=== PATIENT | male | born 1985 | race Caucasian/White ===

== ENCOUNTER 2017-03-19 22:43 | Emergency (ER) | payer BC, OTHER ==
[2017-03-19] MEDS ORDERED: IBUPROFEN 600 MG TAB PO STA (23:44)
--- NOTE | 2017-03-20 00:08 | ED ---
General Adult HPI - General Chief complaint: Extremity Injury, Upper Stated complaint: IHS/Wrist pain Time Seen by Provider: 03/19/17 23:40 Source: patient Mode of arrival: ambulatory Limitations: no limitations - History of Present Illness Initial comments: 31-year-old male patient presents to emergency department today for complaints of right wrist pain. 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 He states that around 6 PM today he began to have pain in the wrist. States that the pain worsens with flexion and extension. He states it is not tender. Patient has had a previous forearm fracture with [employer] in the sixth grade. He denies any chronic issues with this. He denies any radiation of the pain into his hand or up his arm. He denies any numbness or tingling to his hand or fingers. Denies any other injuries. Patient denies any headache, neck pain, back pain, chest pain, shortness of breath, dizziness, weakness, abdominal pain, nausea, vomiting , or difficulties with bowel movements or urination. - Related Data Home Medications Medication Instructions Recorded Confirmed Cetirizine HCl [Zyrtec] 10 mg PO DAILY 03/19/17 03/19/17 Allergies Allergy/AdvReac Type Severity Reaction Status Date / Time No Known Allergies Allergy Verified 08/27/15 08:41 Review of Systems ROS Statement: Those systems with pertinent positive or pertinent negative responses have been documented in the HPI. ROS Other: All systems not noted in ROS Statement are negative. Past Medical History Past Medical History: No Reported History History of Any Multi-Drug Resistant Organisms: None Reported Past Surgical History: Adenoidectomy, Ear Surgery, Hernia Repair, Orthopedic Surgery Past Psychological History: No Psychological Hx Reported Smoking Status: Never smoker Past Alcohol Use History: Occasional Past Drug Use History: None Reported General Exam Limitations: no limitations General appearance: alert, in no apparent distress, other (This is a well- developed well-nourished adult male patient in no acute distress. Vital signs upon presentation were temperature 97.9F, pulse 80, respirations 18, blood pressure 121/77, pulse ox 99% on room air.) Head exam: Present: atraumatic, normocephalic, normal inspection Respiratory exam: Present: normal lung sounds bilaterally. Absent: respiratory distress, wheezes, rales, rhonchi, stridor Cardiovascular Exam: Present: regular rate, normal rhythm, normal heart sounds. Absent: systolic murmur, diastolic murmur, rubs, gallop, clicks Extremities exam: Present: normal inspection, full ROM (Reports increased pain with flexion and hyperextension.), normal capillary refill. Absent: tenderness (No tenderness noted to the wrist, no tenderness over the anatomical snuffbox.) , pedal edema, joint swelling, calf tenderness Neurological exam: Present: alert, oriented X3, CN II-XII intact Psychiatric exam: Present: normal affect, normal mood Skin exam: Present: warm, dry, intact, normal color. Absent: rash Course Vital Signs 03/19/17 22:55 Temperature 97.9 F Pulse Rate 80 Respiratory 18 Rate Blood Pressure 121/77 O2 Sat by Pulse 99 Oximetry Medical Decision Making - Medical Decision Making 31-year-old male patient presents for evaluation of right wrist pain. X-ray was obtained and showed no acute fracture or dislocation. As patient did not have an acute injury, is not having any snuffbox tenderness, and does have increased pain with flexion and extension his pain is most likely due to repetitive use injury versus sprain. Patient will be given an Shadi wrap. Instructed to rest the wrist and perform gentle stretching exercises over the next few days. He is instructed to take ibuprofen or Tylenol for pain control. He is instructed to follow-up with the primary care physician or orthopedic physician for recheck should his pain symptoms persist beyond 7-10 days. He is instructed to return here immediately for any new, worsening, or concerning symptoms. Patient verbalizes understanding and agrees with this plan. - Radiology Data Radiology results: report reviewed, image reviewed 3 views of the right wrist show distal radial shaft side plate and screws through an old fracture. There is a break in the midportion of the plate at the level of the third distal screw. No acute fracture or malalignment of the bony structures. A small calcification radial aspect of the distal radius, likely old fracture. Soft tissues are unremarkable with no radiopaque foreign body. Impression by Dr. Tyson shows distal radial shaft side plate and screws or an old fracture. There is a break in the midportion of the play at the level third distal screw. No fracture or malalignment of the bony structures. Disposition Clinical Impression: Wrist sprain Disposition: HOME SELF-CARE Condition: Good Instructions: Wrist Sprain (ED) Additional Instructions: Use Shadi wrap for comfort. Apply ice 20 minutes at a time at least 4 times per day. Follow up with primary care physician or orthopedic physician for a recheck in 7-10 days if pain symptoms persist. Return here immediately for any new, worsening, or concerning symptoms. Referrals: Nicole Wright DO [Primary Care Provider] - 1-2 days Martin Akins MD [STAFF PHYSICIAN] - 1-2 days Time of Disposition: 01:12
--- NOTE | 2017-03-20 01:08 | XR ---
EXAM: XR Right Wrist Complete, 3 or More Views CLINICAL HISTORY: Pain in RT wrist. H/O radius TECHNIQUE: Frontal, lateral and oblique views of the right wrist. COMPARISON: No relevant prior studies available. FINDINGS: Bones/joints: Distal radial shaft sideplate and screws through an old fracture. There is a break in the midportion of the plate at the level of the third distal screw. No acute fracture or malalignment of the bony structures. Small calcification radial aspect of the distal radius, likely old fracture. Soft tissues: Unremarkable. No radiopaque foreign body. IMPRESSION: 1. Distal radial shaft sideplate and screws through an old fracture. There is a break in the midportion of the plate at the level of the third distal screw. 2. No acute fracture or malalignment of the bony structures.
[2017-03-20 01:46] VITALS: BP 123/73; PULSE 62; RESP 16; TEMP 98.1
== END 2017-03-20 01:44 | disposition home or self-care (01) ==
LOC: EC 22:43
DX: S63.501A Unspecified sprain of right wrist, initial encounter (principal); Z98.890 Other specified postprocedural states; Z79.899 Other long term (current) drug therapy; X50.0XXA Overexertion from strenuous movement or load, initial encounter; Y93.89 Activity, other specified; Y99.0 Civilian activity done for income or pay; Y92.69 Other specified industrial and construction area as the place of occurrence of the external cause
CPT/HCPCS: 99283

== ENCOUNTER 2017-05-08 22:29 | Emergency (ER) | payer BC, OTHER ==
[2017-05-08 22:37] VITALS: BP 133/85; PULSE 76; RESP 18; TEMP 97.8
--- NOTE | 2017-05-08 23:28 | ED ---
General Adult HPI - General Chief complaint: Skin/Abscess/Foreign Body Stated complaint: Abscess Time Seen by Provider: 05/08/17 23:08 Source: patient, RN notes reviewed Mode of arrival: ambulatory Limitations: no limitations - History of Present Illness Initial comments: 31-year-old male presents for evaluation of pain and swelling on his left medial thigh. Patient states he has had several pimples on both his thighs, this is been occurring for many years. Normally he is able to treat these just by expressing pus at home. He had a larger side of infection on his left medial thigh over the past week. Patient does admit to opening this abscess with sterilized tweezers at home. He states he did get a significant amount of pus. He has been applying Neosporin over the site for the past several days. Denies fever or chills. No history diabetes. Patient's second complaint is itchy and erythematous rash over his genitals. He has had this for months to years. He has tried many [id number] remedies with minimal relief. - Related Data Home Medications Medication Instructions Recorded Confirmed Cetirizine HCl [Zyrtec] 10 mg PO DAILY 03/19/17 03/19/17 Previous Rx's Medication Instructions Recorded Clotrimazole Cream [Lotrimin Cream] 1 applic TOPICAL BID #60 gm 05/08/17 Mupirocin 2% Oint [Bactroban 2% 1 applic TOPICAL TID #1 bottle 05/08/17 Oint] Allergies Allergy/AdvReac Type Severity Reaction Status Date / Time No Known Allergies Allergy Verified 05/08/17 22:37 Review of Systems ROS Statement: Those systems with pertinent positive or pertinent negative responses have been documented in the HPI. ROS Other: All systems not noted in ROS Statement are negative. Past Medical History Past Medical History: No Reported History Additional Past Medical History / Comment(s): seasonal allergies History of Any Multi-Drug Resistant Organisms: None Reported Past Surgical History: Adenoidectomy, Ear Surgery, Hernia Repair, Orthopedic Surgery Past Psychological History: No Psychological Hx Reported Smoking Status: Never smoker Past Alcohol Use History: Occasional Past Drug Use History: None Reported General Exam Limitations: no limitations General appearance: alert, in no apparent distress Head exam: Present: atraumatic, normocephalic Eye exam: Present: normal appearance, PERRL ENT exam: Present: normal exam, mucous membranes moist Neck exam: Present: normal inspection. Absent: tenderness, meningismus Respiratory exam: Present: normal lung sounds bilaterally. Absent: respiratory distress Cardiovascular Exam: Present: regular rate, normal rhythm GI/Abdominal exam: Present: soft. Absent: distended, tenderness exam: Present: other (Erythematous scaling rash on his scrotum and perineum) . Absent: testicular tenderness, urethral discharge, scrotal swelling Extremities exam: Present: other (Draining abscess on the proximal medial left thigh, 1 cm of associated cellulitis, no remaining fluctuance or induration) Neurological exam: Present: alert, oriented X3 Psychiatric exam: Present: normal affect, normal mood Skin exam: Present: warm, dry, rash (Tinea cruris) Course Vital Signs 05/08/17 22:33 Temperature 97.8 F Pulse Rate 76 Respiratory 18 Rate Blood Pressure 133/85 O2 Sat by Pulse 98 Oximetry Medical Decision Making - Medical Decision Making 4-year-old male presenting with chief complaint of abscess to the left medial thigh. There is well drained abscess, patient was able to drain this at home with tweezers. Minimal surrounding erythema and cellulitis. Patient is prescribed penicillin for continued treatment. He will also apply warm compresses at home. Additional exam finding of tinea Cruris, patient is prescribed clotrimazole. Blood glucose 103 Disposition Clinical Impression: Tinea cruris, Abscess Disposition: ADMITTED IP TO THIS HOSP Condition: Good Instructions: Abscess (ED), Jock Itch (ED) Prescriptions: Clotrimazole Cream [Lotrimin Cream] 1 applic TOPICAL BID #60 gm Mupirocin 2% Oint [Bactroban 2% Oint] 1 applic TOPICAL TID #1 bottle Referrals: Nicole Wright DO [Primary Care Provider] - 1-2 days Time of Disposition: 23:27
[2017-05-08 23:40] LABS: Glucose,Whole Blood 103 mg/dL (75-99)
== END 2017-05-08 23:43 | disposition other institution (70) ==
LOC: EC 22:29
DX: L02.416 Cutaneous abscess of left lower limb (principal); B35.6 Tinea cruris; Z79.899 Other long term (current) drug therapy
CPT/HCPCS: 36415; 99282

== ENCOUNTER 2018-10-08 17:49 | Emergency (ER) | payer BC ==
[2018-10-08 18:02] VITALS: RESP 18
[2018-10-08] MEDS ORDERED: CYCLOBENZAPRINE 10MG STARTER 3 TAB BTL PO STA (18:12)
[2018-10-08] MEDS ORDERED: KETOROLAC 30 MG/ML 1 ML VIAL IM STA (18:12)
[2018-10-08] MEDS ORDERED: LIDOCAINE 5% PATCH TOPICAL STA (18:13)
--- NOTE | 2018-10-08 19:20 | ED ---
General Adult HPI - General Chief complaint: Back Pain/Injury Stated complaint: BACK PAIN Time Seen by Provider: 10/08/18 18:04 Source: patient, RN notes reviewed Mode of arrival: ambulatory Limitations: no limitations - History of Present Illness Initial comments: 33-year-old male without any significant past medical history presents to the emergency department for a chief complaint of right lower back pain x 2 days. Patient states this is localized in the right lower back. Denies radiating pain down the leg. Patient states pain is better after he gets up and moves around. States it is worse after he has been laying down for quite a while. States this has happened before and he has been to the chiropractor for an adjustment with resolving symptoms. Patient states he also feels better when he flexes his hip and stretches the lower back. Patient denies blood or bowel changes. Denies fevers or chills. Denies any leg weakness or loss of sensation. No history of IV drug abuse. No midline pain. No injuries. However patient does state he hauls heavy pallets around at work and may have strained his back.Patient has no other complaints at this time including shortness of breath, chest pain, abdominal pain, nausea or vomiting, headache, or visual changes. - Related Data Home Medications Medication Instructions Recorded Confirmed Cetirizine HCl [Zyrtec] 10 mg PO DAILY 03/19/17 03/19/17 Previous Rx's Medication Instructions Recorded Clotrimazole Cream [Lotrimin Cream] 1 applic TOPICAL BID #60 gm 05/08/17 Mupirocin 2% Oint [Bactroban 2% 1 applic TOPICAL TID #1 bottle 05/08/17 Oint] Cyclobenzaprine [Flexeril] 10 mg PO TID PRN #10 tab 10/08/18 Allergies Allergy/AdvReac Type Severity Reaction Status Date / Time No Known Allergies Allergy Verified 10/08/18 18:00 Review of Systems ROS Statement: Those systems with pertinent positive or pertinent negative responses have been documented in the HPI. ROS Other: All systems not noted in ROS Statement are negative. Past Medical History Past Medical History: No Reported History Additional Past Medical History / Comment(s): seasonal allergies History of Any Multi-Drug Resistant Organisms: None Reported Past Surgical History: Adenoidectomy, Ear Surgery, Hernia Repair, Orthopedic Surgery Past Psychological History: No Psychological Hx Reported Smoking Status: Never smoker Past Alcohol Use History: Occasional Past Drug Use History: None Reported General Exam Limitations: no limitations General appearance: alert, in no apparent distress Head exam: Present: atraumatic, normocephalic, normal inspection Eye exam: Present: normal appearance, PERRL, EOMI. Absent: scleral icterus, conjunctival injection, periorbital swelling ENT exam: Present: normal exam, mucous membranes moist Neck exam: Present: normal inspection, full ROM. Absent: tenderness, meningismus, lymphadenopathy Respiratory exam: Present: normal lung sounds bilaterally. Absent: respiratory distress, wheezes, rales, rhonchi, stridor Cardiovascular Exam: Present: regular rate, normal rhythm, normal heart sounds. Absent: systolic murmur, diastolic murmur, rubs, gallop, clicks GI/Abdominal exam: Present: soft, normal bowel sounds. Absent: distended, tenderness, guarding, rebound, rigid Extremities exam: Present: full ROM (Full range of motion noted of the right lower extremity. Patient actually has improvement of symptoms with full flexion of the right hip due to stretching of the back muscles. Pain worsens with extension of the right lower extremity.), normal capillary refill (Capillary refill less than 2 seconds, DP pulse 2+ in the right lower extremity) Back exam: Present: paraspinal tenderness (minimal tenderness over SI joint.). Absent: CVA tenderness (R), CVA tenderness (L), vertebral tenderness (No lumbar spine tenderness.) Neurological exam: Present: alert, oriented X3, CN II-XII intact Psychiatric exam: Present: normal affect, normal mood Course Vital Signs 10/08/18 18:00 Temperature 98.9 F Pulse Rate 84 Respiratory 18 Rate Blood Pressure 136/91 O2 Sat by Pulse 100 Oximetry Medical Decision Making - Medical Decision Making 33-year-old male presents to the emergency department for a chief complaint of right-sided lower back pain. Denies any radiating pain. States this improves asked her he has been up and stretching and worse when he has been lying down for some time and then gets up. Patient states pain feels better when he stretches his low back when flexing his hips. Pain is worse with extension of the low back. Neurovascular intact in the right lower extremity. No lumbar spine tenderness. No blunt trauma. 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 Denies bladder or bowel changes, fevers or chills, weakness of the lower extremities or numbness of the lower extremities. Symptoms consistent with mechanical back strain and muscle cramping. Patient given Toradol and Flexeril, feeling much better. Patient also given a lidocaine patch. Will follow up with primary care in 1-2 days. Will return here if he has any worsening symptoms. Disposition Clinical Impression: Mechanical back pain Disposition: HOME SELF-CARE Condition: Good Instructions (If sedation given, give patient instructions): Acute Low Back Pain (ED), Lower Back Exercises (ED) Additional Instructions: Please take Motrin and Tylenol for pain. Please eat food before taking Motrin or Tylenol. Take Flexeril as needed for muscle relaxer. Do not drive or operate machinery while taking this. Patient did do plenty of low back exercises and gentle stretching. Follow up with primary care in 1-2 days. Return here if you have any worsening symptoms such as fevers, inability to urinate, or numbness of the lower extremities. Prescriptions: Cyclobenzaprine [Flexeril] 10 mg PO TID PRN #10 tab PRN Reason: Pain Is patient prescribed a controlled substance at d/c from ED?: No Referrals: Nicole Wright DO [Primary Care Provider] - 1-2 days Time of Disposition: 19:20
[2018-10-08 19:35] VITALS: BP 135/94; PULSE 73; TEMP 98.1
== END 2018-10-08 19:32 | disposition home or self-care (01) ==
LOC: EC 17:49
DX: M54.5 Low back pain (principal); Z79.899 Other long term (current) drug therapy
CPT/HCPCS: 99283; 96372; J1885

== ENCOUNTER 2019-04-02 17:34 | Emergency (ER) | payer BC ==
[2019-04-02 17:47] VITALS: BP 131/87; PULSE 88; RESP 20; TEMP 98.6
[2019-04-02] MEDS ORDERED: SULFAMETHOX-TMP 800-160MG 1 EACH TAB PO STA (18:11)
[2019-04-02] MEDS ORDERED: SULFAMETH-TMP DS STARTER PACK 2 TAB BTL PO STA (18:11)
--- NOTE | 2019-04-02 18:14 | ED ---
General Adult HPI - General Chief complaint: Skin/Abscess/Foreign Body Stated complaint: Toe pain/infection Time Seen by Provider: 04/02/19 17:54 Source: patient, RN notes reviewed, old records reviewed Mode of arrival: ambulatory Limitations: no limitations - History of Present Illness Initial comments: 33-year-old male patient with no pertinent pmhx presents to ED with chief complaint of pain and redness and drainage from the lateral aspect of the great toe on left foot. This has been ongoing for 2 days. Patient reports that 2 days ago he applied pressure to this area and drained pus out of it. Patient reports he has had a small amount discharge since. Patient denies any other complaints. Systemic: Pt denies fatigue, fever/chills, rash. Pt denies weakness, night sweats, weight loss. Neuro: Pt denies headache, visual disturbances, syncope or pre-syncope. HEENT: Pt denies ocular discharge or irritation, otalgia, rhinorrhea, pharyngitis or notable lymphadenopathy. Cardiopulmonary: Pt denies chest pain, SOB, heart palpitations, dyspnea on exertion. Abdominal/GI: Pt denies abdominal pain, n/v/d. : Pt denies dysuria, burning w/ urination, frequency/urgency. Denies new onset urinary or bowel incontinence. MSK: Pt denies oss of strength or function in extremities. Neuro: Pt denies new onset weakness, paresthesias. - Related Data Home Medications Medication Instructions Recorded Confirmed Cetirizine HCl [Zyrtec] 10 mg PO DAILY 03/19/17 03/19/17 Previous Rx's Medication Instructions Recorded Clotrimazole Cream [Lotrimin Cream] 1 applic TOPICAL BID #60 gm 05/08/17 Mupirocin 2% Oint [Bactroban 2% 1 applic TOPICAL TID #1 bottle 05/08/17 Oint] Cyclobenzaprine [Flexeril] 10 mg PO TID PRN #10 tab 10/08/18 Sulfamethox-Tmp 800-160Mg [Bactrim 2 tab PO Q12HR 7 Days #28 tab 04/02/19 DS 800-160 mg] Allergies Allergy/AdvReac Type Severity Reaction Status Date / Time No Known Allergies Allergy Verified 04/02/19 17:46 Review of Systems ROS Statement: Those systems with pertinent positive or pertinent negative responses have been documented in the HPI. ROS Other: All systems not noted in ROS Statement are negative. Past Medical History Past Medical History: No Reported History Additional Past Medical History / Comment(s): seasonal allergies History of Any Multi-Drug Resistant Organisms: None Reported Past Surgical History: Adenoidectomy, Ear Surgery, Hernia Repair, Orthopedic Surgery Past Psychological History: No Psychological Hx Reported Smoking Status: Never smoker Past Alcohol Use History: Occasional Past Drug Use History: None Reported General Exam - General Exam Comments Initial Comments: Constitutional: NAD, AOX3, Pt has pleasant affect. HEENT: NC/AT, trachea midline, neck supple, no lymphadenopathy. Posterior pharynx non erythematous, without exudates. External ears appear normal, without discharge. Mucous membranes moist. Eyes PERRLA, EOM intact. There is no scleral icterus. No pallor noted. Cardiopulmonary: RRR, no murmurs, rubs or gallops, no JVD noted. Lungs CTAB in anterior and posterior williamson. No peripheral edema. Abdominal exam: Abdomen soft and non-distended. Abdomen non-tender to palpation in all 4 quadrants. Bowel sounds active in LLQ. No hepatosplenomegaly. No ecchymosis Neuro: CN II-XII grossly intact. No nuchal rigidity. No raccon eyes, no monzon sign, no hemotympanum. No cervical spinal tenderness. MSK: Paronychia noted to great toe of left foot. Patient able to wiggle toes. Cap refill less than 2 seconds. Mild amount of surrounding erythema. Clear drainage was expressed., Actively draining. . No posterior calf tenderness bilaterally, homans sign negative bilaterally. Posterior tibialis and radial pulse +2 bilaterally. Sensation intact in upper and lower extremities. Full active ROM in upper and lower extremities, 5/5 stregnth. Limitations: no limitations Course Vital Signs 04/02/19 17:43 Temperature 98.6 F Pulse Rate 88 Respiratory 20 Rate Blood Pressure 131/87 O2 Sat by Pulse 99 Oximetry Medical Decision Making - Medical Decision Making 33-year-old male patient in [facility] chief complaint of paronychia to the great toe of his left foot. Patient has been able to express purulent drainage of the 2 days ago. Has had some clear drainage since. Patient will signs are stable, afebrile. Physical exam displayed paronychia actively draining. Pulmonary erythema around region. Culture was obtained. Patient will be placed on Bactrim. Patient will continue treatment including an compress and soaks. Patient follow up with primary care provider. Will return to ER if condition worsens in any way. Case discussed with Dr. Benoit. Disposition Clinical Impression: Paronychia Disposition: HOME SELF-CARE Condition: Stable Instructions (If sedation given, give patient instructions): Paronychia (ED), Warm Compress or Soak (ED) Additional Instructions: Patient to adhere to previously discussed treatment plan and will take medication(s) as directed. Patient to follow up with PCP in 1-2 days. Patient to return to ED if symptoms do not improve. Continue doing warm compresses or soaks. Taken antibiotics as directed. Return to ER if condition worsens or is not improved. Otherwise follow-up with primary care provider tomorrow. Prescriptions: Sulfamethox-Tmp 800-160Mg [Bactrim DS 800-160 mg] 2 tab PO Q12HR 7 Days #28 tab Is patient prescribed a controlled substance at d/c from ED?: No Referrals: Nicole Wright DO [Primary Care Provider] - 1-2 days
== END 2019-04-02 18:45 | disposition home or self-care (01) ==
LOC: EC 17:34
DX: L03.032 Cellulitis of left toe (principal); Z91.048 Other nonmedicinal substance allergy status; Z79.899 Other long term (current) drug therapy
CPT/HCPCS: 87070; 87077; 87186; 87205; 99284

== ENCOUNTER 2019-06-24 22:55 | Emergency (ER) | payer BC ==
[2019-06-24 23:00] VITALS: BP 128/84
--- NOTE | 2019-06-24 23:16 | ED ---
Fever HPI - General Chief Complaint: Nausea/Vomiting/Diarrhea Stated Complaint: Fever Time Seen by Provider: 06/24/19 22:59 Source: patient, RN notes reviewed, old records reviewed Mode of arrival: ambulatory Limitations: no limitations - History of Present Illness Initial Comments: This is a 33-year-old male here for evaluation presented for evaluation of multiple nonspecific complaints doesn't fever vomiting diarrhea multiple episodes of all the above patient does feel weak no travel history or sick contacts no significant medical history patient's diarrhea has Explosive and persistent decreased oral intake secondary to nausea and vomiting MD Complaint: fever, weakness -: hour(s) Temperature Source: subjective Context: multiple patients with similar symptoms Associated Symptoms: denies other symptoms, myalgias, cough, nausea, vomiting, night sweats Treatments Prior to Arrival: Acetaminophen, Ibuprofen - Related Data Home Medications Medication Instructions Recorded Confirmed Cetirizine HCl [Zyrtec] 10 mg PO DAILY 03/19/17 03/19/17 Previous Rx's Medication Instructions Recorded Clotrimazole Cream [Lotrimin Cream] 1 applic TOPICAL BID #60 gm 05/08/17 Mupirocin 2% Oint [Bactroban 2% 1 applic TOPICAL TID #1 bottle 05/08/17 Oint] Cyclobenzaprine [Flexeril] 10 mg PO TID PRN #10 tab 10/08/18 Sulfamethox-Tmp 800-160Mg [Bactrim 2 tab PO Q12HR 7 Days #28 tab 04/02/19 DS 800-160 mg] Allergies Allergy/AdvReac Type Severity Reaction Status Date / Time No Known Allergies Allergy Verified 06/24/19 23:00 Review of Systems ROS Statement: Those systems with pertinent positive or pertinent negative responses have been documented in the HPI. ROS Other: All systems not noted in ROS Statement are negative. Past Medical History Past Medical History: No Reported History Additional Past Medical History / Comment(s): seasonal allergies History of Any Multi-Drug Resistant Organisms: MRSA Date of last positivie culture/infection: 04/02/19 MDRO Source:: Toe, right First Past Surgical History: Adenoidectomy, Ear Surgery, Hernia Repair, Orthopedic Surgery Past Psychological History: No Psychological Hx Reported Smoking Status: Never smoker Past Alcohol Use History: Occasional Past Drug Use History: None Reported General Exam Limitations: no limitations General appearance: alert, in no apparent distress Head exam: Present: atraumatic, normocephalic, normal inspection Eye exam: Present: normal appearance, PERRL, EOMI. Absent: scleral icterus, conjunctival injection, periorbital swelling ENT exam: Present: normal exam, mucous membranes moist Neck exam: Present: normal inspection. Absent: tenderness, meningismus, lymphadenopathy Respiratory exam: Present: normal lung sounds bilaterally. Absent: respiratory distress, wheezes, rales, rhonchi, stridor Cardiovascular Exam: Present: normal rhythm, tachycardia, normal heart sounds. Absent: systolic murmur, diastolic murmur, rubs, gallop, clicks GI/Abdominal exam: Present: soft, normal bowel sounds. Absent: distended, tenderness, guarding, rebound, rigid Extremities exam: Present: normal inspection, full ROM, normal capillary refill. Absent: tenderness, pedal edema, joint swelling, calf tenderness Back exam: Present: normal inspection Neurological exam: Present: alert, oriented X3, CN II-XII intact Psychiatric exam: Present: normal affect, normal mood Skin exam: Present: warm, dry, intact, normal color. Absent: rash Course Vital Signs 06/24/19 06/25/19 22:57 00:40 Temperature 99.8 F H 100.0 F H Pulse Rate 103 H 95 Respiratory 20 18 Rate Blood Pressure 128/84 O2 Sat by Pulse 98 100 Oximetry - Reevaluation(s) Reevaluation #1: 06/24/19 23:54 medical record is reviewed Reevaluation #2: 06/24/19 23:54 symptoms are improved Medical Decision Making - Medical Decision Making 33 male date ER for evaluation lab values are completely within normal limits. We'll continue Motrin and Tylenol for symptoms symptoms do appear to be persistent with the flu, stomach flu. Influenza negative [facility] normal patient can be discharged - Lab Data Result diagrams: 06/24/19 23:17 06/24/19 23:17 Lab Results 06/24/19 06/24/19 06/24/19 Range/Units 23:17 23:17 23:38 WBC 11.7 H (3.8-10.6) k/uL RBC 5.65 (4.30-5.90) m/uL Hgb 16.4 (13.0-17.5) gm/dL Hct 49.7 (39.0-53.0) % MCV 87.9 (80.0-100.0) fL MCH 29.0 (25.0-35.0) pg MCHC 32.9 (31.0-37.0) g/dL RDW 12.3 (11.5-15.5) % Plt Count 227 (150-450) k/uL Neutrophils % 87 % Lymphocytes % 6 % Monocytes % 4 % Eosinophils % 2 % Basophils % 0 % Neutrophils # 10.2 H (1.3-7.7) k/uL Lymphocytes # 0.7 L (1.0-4.8) k/uL Monocytes # 0.5 (0-1.0) k/uL Eosinophils # 0.2 (0-0.7) k/uL Basophils # 0.0 (0-0.2) k/uL Sodium 139 (137-145) mmol/L Potassium 4.6 (3.5-5.1) mmol/L Chloride 104 (98-107) mmol/L Carbon Dioxide 26 (22-30) mmol/L Anion Gap 9 mmol/L BUN 19 (9-20) mg/dL Creatinine 0.77 (0.66-1.25) mg/dL Est GFR (CKD-EPI)AfAm >90 (>60 ml/min/1.73 sqM) Est GFR (CKD-EPI)NonAf >90 (>60 ml/min/1.73 sqM) Glucose 112 H (74-99) mg/dL Calcium 9.3 (8.4-10.2) mg/dL Phosphorus 3.3 (2.5-4.5) mg/dL Magnesium 1.9 (1.6-2.3) mg/dL Total Bilirubin 1.7 H (0.2-1.3) mg/dL AST 40 (17-59) U/L ALT 23 (4-49) U/L Alkaline Phosphatase 63 (38-126) U/L Total Protein 8.1 (6.3-8.2) g/dL Albumin 4.8 (3.5-5.0) g/dL Influenza Type A RNA Not Detected (Not Detectd) Influenza Type B (PCR) Not Detected (Not Detectd) Disposition Clinical Impression: Dehydration, Fever Disposition: HOME SELF-CARE Condition: Good Instructions (If sedation given, give patient instructions): Fever in Adults (ED) Is patient prescribed a controlled substance at d/c from ED?: No Referrals: Nicole Wright DO [Primary Care Provider] - 1-2 days
[2019-06-24] MEDS ORDERED: ACETAMINOPHEN TAB 500 MG TAB PO STA (23:17)
[2019-06-24] MEDS ORDERED: DEXAMETHASONE SOD PHOSPHATE 10 MG/ML 1 ML VIAL IV STA (23:17)
[2019-06-24] MEDS ORDERED: SODIUM CHLORIDE 0.9% 500 ML 500 ML IV STA (23:17)
[2019-06-24] MEDS ORDERED: ONDANSETRON 4 MG/2 ML VIAL IVP STA (23:17)
[2019-06-24] MEDS ORDERED: KETOROLAC 30 MG/ML 1 ML VIAL IVP STA (23:17)
[2019-06-24] MEDS ORDERED: SODIUM CHLORIDE 0.9% 1,000 ML IV STA ×2 (23:17)
[2019-06-24 23:30] LABS: Basophils % (A) 0 %; Eosinophils # (A) 0.2 k/uL (0-0.7); Eosinophils % (A) 2 %; HCT 49.7 % (39.0-53.0); HGB 16.4 gm/dL (13.0-17.5); Lymphocytes # (A) 0.7 k/uL (1.0-4.8); Lymphocytes % (A) 6 %; MCHC 32.9 g/dL (31.0-37.0); MCV 87.9 fL (80.0-100.0); Mean Platelet Volume 7.4; Monocytes # (A) 0.5 k/uL (0-1.0); Monocytes % (A) 4 %; Neutrophils # (A) 10.2 k/uL (1.3-7.7); Neutrophils % (A) 87 %; Platelet Count 227 k/uL (150-450); RBC 5.65 m/uL (4.30-5.90); RDW 12.3 % (11.5-15.5); WBC 11.7 k/uL (3.8-10.6)
[2019-06-24 23:46] LABS: ALT 23 U/L (4-49); African American GFR (CKD) >90 (>60 ml/min/1.73 sqM); Anion Gap 9 mmol/L; Blood Urea Nitrogen 19 mg/dL (9-20); Calcium 9.3 mg/dL (8.4-10.2); Carbon Dioxide 26 mmol/L (22-30); Chloride 104 mmol/L (98-107); Glucose 112 mg/dL (74-99); Non-African American GFR(CKD) >90 (>60 ml/min/1.73 sqM); Sodium 139 mmol/L (137-145)
[2019-06-25] MEDS ORDERED: ONDANSETRON 4 MG ODT STARTER PACK 2 TAB BTL PO STA (00:11)
[2019-06-25 00:26] LABS: Magnesium 1.9 mg/dL (1.6-2.3); Phosphorus 3.3 mg/dL (2.5-4.5); Potassium 4.6 mmol/L (3.5-5.1)
[2019-06-25 00:27] LABS: AST 40 U/L (17-59); Albumin 4.8 g/dL (3.5-5.0); Alkaline Phosphatase 63 U/L (38-126); Total Bilirubin 1.7 mg/dL (0.2-1.3); Total Protein 8.1 g/dL (6.3-8.2)
[2019-06-25 00:42] VITALS: PULSE 95; RESP 18; TEMP 100
== END 2019-06-25 00:42 | disposition home or self-care (01) ==
LOC: EC 22:55
DX: E86.0 Dehydration (principal); R50.9 Fever, unspecified; R00.0 Tachycardia, unspecified; R11.2 Nausea with vomiting, unspecified; R19.7 Diarrhea, unspecified; R53.1 Weakness; R63.8 Other symptoms and signs concerning food and fluid intake; Z91.048 Other nonmedicinal substance allergy status; Z79.899 Other long term (current) drug therapy; Z86.14 Personal history of Methicillin resistant Staphylococcus aureus infection
CPT/HCPCS: 36415; 80053; 83735; 84100; 85025; 87502; 99284; 96374; 96375 ×2; 96361; J1100; J2405; J1885; S0119

== ENCOUNTER 2019-09-17 05:41 | Emergency (ER) | payer BC ==
[2019-09-17 05:48] VITALS: BP 131/82; RESP 18
--- NOTE | 2019-09-17 06:08 | ED ---
URI HPI - General Chief Complaint: Upper Respiratory Infection Stated Complaint: congestion Time Seen by Provider: 09/17/19 05:57 Source: patient, RN notes reviewed Mode of arrival: ambulatory Limitations: no limitations - History of Present Illness Initial Comments: 34-year-old male presents emergency department to complaining of nasal congestion. Patient states he's had nasal congestion last couple days. He does admit that he has severe ALLERGIES and which she normally takes Claritin. He only just started taking them last 24 hours. Patient denies any fevers chills no sick contacts. Denies any headache, dizziness. Has mild postnasal drainage and productive cough negative in the morning. Patient states he has no chest pain or shortness of breath. Patient states his creatinine is helping. He has not tried any other antihistamines or nasal sprays. Patient states his cat dander ALLERGY and he has cats in his house and states makes it spread to his ALLERGIES worse. - Related Data Home Medications Medication Instructions Recorded Confirmed Cetirizine HCl [Zyrtec] 10 mg PO DAILY 03/19/17 03/19/17 Previous Rx's Medication Instructions Recorded Clotrimazole Cream [Lotrimin Cream] 1 applic TOPICAL BID #60 gm 05/08/17 Mupirocin 2% Oint [Bactroban 2% 1 applic TOPICAL TID #1 bottle 05/08/17 Oint] Cyclobenzaprine [Flexeril] 10 mg PO TID PRN #10 tab 10/08/18 Sulfamethox-Tmp 800-160Mg [Bactrim 2 tab PO Q12HR 7 Days #28 tab 04/02/19 DS 800-160 mg] Fluticasone Nasal [place] [Flonase 2 spr EA NOSTRIL DAILY #1 bottle 09/17/19 Nasal [place]] Allergies Allergy/AdvReac Type Severity Reaction Status Date / Time cat dander Allergy Swelling Verified 09/17/19 05:48 Review of Systems ROS Statement: Those systems with pertinent positive or pertinent negative responses have been documented in the HPI. ROS Other: All systems not noted in ROS Statement are negative. Past Medical History Past Medical History: No Reported History Additional Past Medical History / Comment(s): seasonal allergies History of Any Multi-Drug Resistant Organisms: MRSA Date of last positivie culture/infection: 04/02/19 MDRO Source:: Toe, right First Past Surgical History: Adenoidectomy, Ear Surgery, Hernia Repair, Orthopedic Surgery Past Psychological History: No Psychological Hx Reported Smoking Status: Former smoker Past Alcohol Use History: Occasional Past Drug Use History: None Reported General Exam Limitations: no limitations General appearance: alert, in no apparent distress Head exam: Present: atraumatic, normocephalic, normal inspection Eye exam: Present: normal appearance, PERRL, EOMI. Absent: scleral icterus, conjunctival injection, periorbital swelling ENT exam: Present: normal oropharynx, mucous membranes moist, TM's normal bilaterally. Absent: normal exam (Postnasal drainage, mild rhinorrhea) Neck exam: Present: normal inspection, full ROM. Absent: tenderness, meningismus, lymphadenopathy Respiratory exam: Present: normal lung sounds bilaterally. Absent: respiratory distress, wheezes, rales, rhonchi, stridor Cardiovascular Exam: Present: regular rate, normal rhythm, normal heart sounds. Absent: systolic murmur, diastolic murmur, rubs, gallop, clicks Course Vital Signs 09/17/19 05:42 Temperature 98.1 F Pulse Rate 95 Respiratory 18 Rate Blood Pressure 131/82 O2 Sat by Pulse 98 Oximetry Medical Decision Making - Medical Decision Making 34-year-old presented for congestion. Patient has a mild rhinorrhea, this appears to be related to his ALLERGIES he might have a mild upper respiratory infection. Patient will continue Claritin, Flonase this time. Disposition Clinical Impression: Allergies, Acute upper respiratory infection Disposition: HOME SELF-CARE Condition: Stable Instructions (If sedation given, give patient instructions): Upper Respiratory Infection (ED) Additional Instructions: Please return to the Emergency Department if symptoms worsen or any other concerns. Prescriptions: Fluticasone Nasal [place] [Flonase Nasal [place]] 2 spr EA NOSTRIL DAILY #1 bottle Is patient prescribed a controlled substance at d/c from ED?: No Referrals: Nicole Wright DO [Primary Care Provider] - 1-2 days Time of Disposition: 06:08
[2019-09-17 06:14] VITALS: PULSE 97; TEMP 98
== END 2019-09-17 06:13 | disposition home or self-care (01) ==
LOC: EC 05:41
DX: J06.9 Acute upper respiratory infection, unspecified (principal); T78.40XA Allergy, unspecified, initial encounter; Z86.14 Personal history of Methicillin resistant Staphylococcus aureus infection; Z87.891 Personal history of nicotine dependence; Z79.899 Other long term (current) drug therapy; Z91.048 Other nonmedicinal substance allergy status
CPT/HCPCS: 99283

== ENCOUNTER 2020-03-09 12:59 | Emergency (ER) | payer BC ==
[2020-03-09 13:11] VITALS: BP 142/94; PULSE 97; RESP 18; TEMP 98.2
--- NOTE | 2020-03-09 13:41 | ED ---
General Adult HPI - General Chief complaint: Arrhythmia/Palpitations Stated complaint: palpitations Time Seen by Provider: 03/09/20 13:12 Source: patient Mode of arrival: ambulatory Limitations: no limitations - History of Present Illness Initial comments: Dictation was produced using [employer] dictation software. please excuse any grammatical, word or spelling errors. This patient was cared for during a federal and state declared state of emergen cy secondary to Covid 19 Chief Complaint: 34-year-old male with no significant past medical history presents with episodes of palpitations. History of Present Illness: 34-year-old male who was at the bar when he was waiting in line when all of a sudden he felt like he was having palpitations. Patient typically has a symptoms once every 3 months. He reports that he has family history of this. Patient wears a watch and is watched detected that his heart rate was anywhere between 170-180 for approximately 10 minutes. Patient feels like he is having these episodes more than once every 3 months and decided come to the emergency Department for evaluation. His significant other at bedside is worried about him and felt like his cardiac to the emergency department. He reports that his father was advised by movement education specialist for similar presentation however his tests were unremarkable. He reports his mother has history of hyperthyroidism and needed thyroid surgery. Patient is asymptomatic at this time. The ROS documented in this emergency department record has been reviewed and confirmed by me. Those systems with pertinent positive or negative responses have been documented in the HPI. All other systems are other negative and/or noncontributory. PHYSICAL EXAM: General Impression: Alert and oriented x3, not in acute distress HEENT: Normocephalic atraumatic, extra-ocular movements intact, pupils equal and reactive to light bilaterally, mucous membranes moist. Cardiovascular: Heart regular rate and rhythm Chest: Able to complete full sentences, no retractions, no tachypnea Abdomen: abdomen soft, non-tender, non-distended, no organomegaly Musculoskeletal: Pulses present and equal in all extremities, no peripheral edema Motor: no focal deficits noted Neurological: CN II-XII grossly intact, no focal motor or sensory deficits noted Skin: Intact with no visualized rashes Psych: Normal affect and mood ED course: 34-year-old male presents with palpitations. His Smart watch data was reviewed and his heart rate was 170-180 for approximately 10 minutes at around 11 AM today. Signs upon arrival are within acceptable limits. Patient's well-appearing. Physical examination is benign. EKG shows normal sinus rhythm.Laboratory evaluation obtained. CBC, coag panel, metabolic panel is unremarkable. Troponin is negative. TSH was normal. Patient is observed in the emergency department for couple hours with no episodes of palpitations. Patient given referral to cardiology. Repeat vital signs are unremarkable. At this point it is unclear what is causing patient's palpitations. He would be a candidate for Holter monitoring. Return parameters discussed. Patient agreeable to disposition. EKG interpretation: Ventricular rate 84, normal sinus rhythm,. Interval 144, QRS 100, QTC 432. No LA prolongation, no QTC prolongation, no ST or T-wave changes noted. Overall, this EKG is unremarkable - Related Data Home Medications Medication Instructions Recorded Confirmed Loratadine 10 mg PO DAILY 03/09/20 03/09/20 Allergies Allergy/AdvReac Type Severity Reaction Status Date / Time cat dander Allergy Swelling Verified 03/09/20 14:19 Review of Systems ROS Statement: Those systems with pertinent positive or pertinent negative responses have been documented in the HPI. ROS Other: All systems not noted in ROS Statement are negative. Past Medical History Past Medical History: No Reported History Additional Past Medical History / Comment(s): seasonal allergies History of Any Multi-Drug Resistant Organisms: MRSA Date of last positivie culture/infection: 04/02/19 MDRO Source:: Toe, right First Past Surgical History: Adenoidectomy, Ear Surgery, Hernia Repair, Orthopedic Surgery Additional Past Surgical History / Comment(s): R wrist Past Psychological History: No Psychological Hx Reported Smoking Status: Never smoker Past Alcohol Use History: Occasional Past Drug Use History: None Reported General Exam Limitations: no limitations Course Vital Signs 03/09/20 13:07 Temperature 98.2 F Pulse Rate 97 Respiratory 18 Rate Blood Pressure 142/94 O2 Sat by Pulse 99 Oximetry Medical Decision Making - Lab Data Result diagrams: 03/09/20 13:38 03/09/20 13:38 Lab Results 03/09/20 03/09/20 03/09/20 Range/Units 13:38 13:38 13:38 WBC 6.7 (3.8-10.6) k/uL RBC 5.27 (4.30-5.90) m/uL Hgb 15.6 (13.0-17.5) gm/dL Hct 47.3 (39.0-53.0) % MCV 89.8 (80.0-100.0) fL MCH 29.6 (25.0-35.0) pg MCHC 32.9 (31.0-37.0) g/dL RDW 12.5 (11.5-15.5) % Plt Count 227 (150-450) k/uL Neutrophils % 62 % Lymphocytes % 25 % Monocytes % 6 % Eosinophils % 4 % Basophils % 1 % Neutrophils # 4.2 (1.3-7.7) k/uL Lymphocytes # 1.7 (1.0-4.8) k/uL Monocytes # 0.4 (0-1.0) k/uL Eosinophils # 0.3 (0-0.7) k/uL Basophils # 0.0 (0-0.2) k/uL PT 9.8 (9.0-12.0) sec INR 0.9 (<1.2) APTT 26.3 (22.0-30.0) sec Sodium 142 (137-145) mmol/L Potassium 4.2 (3.5-5.1) mmol/L Chloride 102 (98-107) mmol/L Carbon Dioxide 33 H (22-30) mmol/L Anion Gap 7 mmol/L BUN 18 (9-20) mg/dL Creatinine 1.10 (0.66-1.25) mg/dL Est GFR (CKD-EPI)AfAm >90 (>60 ml/min/1.73 sqM) Est GFR (CKD-EPI)NonAf 88 (>60 ml/min/1.73 sqM) Glucose 90 (74-99) mg/dL Calcium 9.3 (8.4-10.2) mg/dL Magnesium 2.1 (1.6-2.3) mg/dL Total Bilirubin 0.8 (0.2-1.3) mg/dL AST 37 (17-59) U/L ALT 45 (4-49) U/L Alkaline Phosphatase 72 (38-126) U/L Troponin I (0.000-0.034) ng/mL Total Protein 7.3 (6.3-8.2) g/dL Albumin 4.5 (3.5-5.0) g/dL TSH 3.180 (0.465-4.680) mIU/L 03/09/20 Range/Units 13:38 WBC (3.8-10.6) k/uL RBC (4.30-5.90) m/uL Hgb (13.0-17.5) gm/dL Hct (39.0-53.0) % MCV (80.0-100.0) fL MCH (25.0-35.0) pg MCHC (31.0-37.0) g/dL RDW (11.5-15.5) % Plt Count (150-450) k/uL Neutrophils % % Lymphocytes % % Monocytes % % Eosinophils % % Basophils % % Neutrophils # (1.3-7.7) k/uL Lymphocytes # (1.0-4.8) k/uL Monocytes # (0-1.0) k/uL Eosinophils # (0-0.7) k/uL Basophils # (0-0.2) k/uL PT (9.0-12.0) sec INR (<1.2) APTT (22.0-30.0) sec Sodium (137-145) mmol/L Potassium (3.5-5.1) mmol/L Chloride (98-107) mmol/L Carbon Dioxide (22-30) mmol/L Anion Gap mmol/L BUN (9-20) mg/dL Creatinine (0.66-1.25) mg/dL Est GFR (CKD-EPI)AfAm (>60 ml/min/1.73 sqM) Est GFR (CKD-EPI)NonAf (>60 ml/min/1.73 sqM) Glucose (74-99) mg/dL Calcium (8.4-10.2) mg/dL Magnesium (1.6-2.3) mg/dL Total Bilirubin (0.2-1.3) mg/dL AST (17-59) U/L ALT (4-49) U/L Alkaline Phosphatase (38-126) U/L Troponin I <0.012 (0.000-0.034) ng/mL Total Protein (6.3-8.2) g/dL Albumin (3.5-5.0) g/dL TSH (0.465-4.680) mIU/L Disposition Clinical Impression: Palpitations Disposition: HOME SELF-CARE Condition: Good Instructions (If sedation given, give patient instructions): Heart Palpitations (ED) Is patient prescribed a controlled substance at d/c from ED?: No Referrals: iRcardo Mena DO [STAFF PHYSICIAN] - 1-2 days Time of Disposition: 15:01
[2020-03-09 13:46] LABS: Basophils % (A) 1 %; Eosinophils # (A) 0.3 k/uL (0-0.7); Eosinophils % (A) 4 %; HCT 47.3 % (39.0-53.0); HGB 15.6 gm/dL (13.0-17.5); Lymphocytes # (A) 1.7 k/uL (1.0-4.8); Lymphocytes % (A) 25 %; MCH 29.6 pg (25.0-35.0); MCHC 32.9 g/dL (31.0-37.0); MCV 89.8 fL (80.0-100.0); Mean Platelet Volume 7.6; Monocytes # (A) 0.4 k/uL (0-1.0); Monocytes % (A) 6 %; Neutrophils # (A) 4.2 k/uL (1.3-7.7); Neutrophils % (A) 62 %; Platelet Count 227 k/uL (150-450); RBC 5.27 m/uL (4.30-5.90); RDW 12.5 % (11.5-15.5); WBC 6.7 k/uL (3.8-10.6)
[2020-03-09 13:54] LABS: ALT 45 U/L (4-49); AST 37 U/L (17-59); African American GFR (CKD) >90 (>60 ml/min/1.73 sqM); Albumin 4.5 g/dL (3.5-5.0); Alkaline Phosphatase 72 U/L (38-126); Anion Gap 7 mmol/L; Blood Urea Nitrogen 18 mg/dL (9-20); Calcium 9.3 mg/dL (8.4-10.2); Carbon Dioxide 33 mmol/L (22-30); Chloride 102 mmol/L (98-107); Glucose 90 mg/dL (74-99); Magnesium 2.1 mg/dL (1.6-2.3); Non-African American GFR(CKD) 88 (>60 ml/min/1.73 sqM); Potassium 4.2 mmol/L (3.5-5.1); Sodium 142 mmol/L (137-145); Total Bilirubin 0.8 mg/dL (0.2-1.3); Total Protein 7.3 g/dL (6.3-8.2)
[2020-03-09 13:59] LABS: INR 0.9 (<1.2); Partial Thromboplastin Time 26.3 sec (22.0-30.0); Prothrombin Time 9.8 sec (9.0-12.0)
--- NOTE | 2020-03-09 14:17 | XR ---
EXAMINATION TYPE: XR chest 2V DATE OF EXAM: 03/09/2020 COMPARISON: 08/27/2015 HISTORY: Dysrhythmia TECHNIQUE: FINDINGS: Heart and mediastinum are normal. Lungs are clear. Diaphragm is normal. Bony thorax appears normal. IMPRESSION: Normal chest. No change.
== END 2020-03-09 15:10 | disposition home or self-care (01) ==
LOC: EC 12:59
DX: R00.2 Palpitations (principal); Z79.899 Other long term (current) drug therapy; Z91.09 Other allergy status, other than to drugs and biological substances
CPT/HCPCS: 36415; 71046; 80053; 83735; 84443; 84484; 85025; 85610; 85730; 93005; 99285

== ENCOUNTER 2020-09-01 16:51 | Emergency (ER) | payer BC ==
[2020-09-01 16:58] VITALS: TEMP 100.1
--- NOTE | 2020-09-01 18:28 | ED ---
General Adult HPI - General Chief complaint: Shortness of Breath Stated complaint: SOB/cough Time Seen by Provider: 09/01/20 18:07 Source: patient, RN notes reviewed, old records reviewed Mode of arrival: ambulatory Limitations: no limitations - History of Present Illness Initial comments: 35-year-old male presenting for evaluation of cough, fatigue, nasal congestion. Patient states he had several known cases of coronavirus at his place of employment. He states that his illness began approximately one week ago with nasal congestion and rhinorrhea. He's had one episode of diarrhea several days ago. No vomiting. He does have some mild dyspnea with exertion and states that he gets tired quite quickly. His has the same symptoms. - Related Data Home Medications Medication Instructions Recorded Confirmed Loratadine 10 mg PO DAILY 03/09/20 03/09/20 Allergies Allergy/AdvReac Type Severity Reaction Status Date / Time cat dander Allergy Swelling Verified 09/01/20 16:58 Review of Systems ROS Statement: Those systems with pertinent positive or pertinent negative responses have been documented in the HPI. ROS Other: All systems not noted in ROS Statement are negative. Past Medical History Past Medical History: No Reported History Additional Past Medical History / Comment(s): seasonal allergies History of Any Multi-Drug Resistant Organisms: MRSA Date of last positivie culture/infection: 04/02/19 MDRO Source:: Toe, right First Past Surgical History: Adenoidectomy, Ear Surgery, Hernia Repair, Orthopedic Surgery Additional Past Surgical History / Comment(s): R wrist Past Psychological History: No Psychological Hx Reported Smoking Status: Never smoker Past Alcohol Use History: Occasional Past Drug Use History: None Reported General Exam Limitations: no limitations General appearance: alert, in no apparent distress Head exam: Present: atraumatic, normocephalic Eye exam: Present: normal appearance, PERRL ENT exam: Present: normal exam, normal oropharynx Neck exam: Present: normal inspection. Absent: tenderness, meningismus Respiratory exam: Present: normal lung sounds bilaterally. Absent: respiratory distress, wheezes, rales Cardiovascular Exam: Present: regular rate, normal rhythm GI/Abdominal exam: Present: soft. Absent: distended, tenderness, guarding Extremities exam: Present: normal inspection, normal capillary refill. Absent: pedal edema Neurological exam: Present: alert, oriented X3, CN II-XII intact. Absent: motor sensory deficit Psychiatric exam: Present: normal affect, normal mood Skin exam: Present: warm, dry, intact. Absent: cyanosis, diaphoretic Course Vital Signs 09/01/20 16:56 Temperature 100.1 F H Pulse Rate 107 H Respiratory 18 Rate Blood Pressure 139/96 O2 Sat by Pulse 98 Oximetry Medical Decision Making - Medical Decision Making 35-year-old with signs and symptoms of a viral infection. Coronavirus test is positive. X-rays clear, normal oxygenation. Patient is given strict return parameters. He will quarantine for the next 10 days. - Lab Data Lab Results 09/01/20 Range/Units 18:20 Coronavirus (PCR) Detected A (Not Detectd) Disposition Clinical Impression: COVID-19 Disposition: HOME SELF-CARE Condition: Good Instructions (If sedation given, give patient instructions): Viral Syndrome (ED) Additional Instructions: Please quarantined for 10 days, return with any worsening breathing issues or worsening symptoms in general. Is patient prescribed a controlled substance at d/c from ED?: No Referrals: Nicole Wright DO [Primary Care Provider] - 1-2 days Time of Disposition: 19:51
--- NOTE | 2020-09-01 19:32 | XR ---
EXAMINATION TYPE: XR chest 1V portable DATE OF EXAM: 09/01/2020 COMPARISON: Correlation chest x-ray from 03/09/2020 HISTORY: Cough TECHNIQUE: Single frontal view of the chest is obtained. FINDINGS: There is no focal air space opacity, pleural effusion, or pneumothorax seen. The cardiac silhouette size is within normal limits. The osseous structures are intact. IMPRESSION: No acute process.
[2020-09-01 21:21] VITALS: BP 122/79; PULSE 77; RESP 18
== END 2020-09-01 21:21 | disposition home or self-care (01) ==
LOC: EC 16:51
DX: U07.1 COVID-19 (principal)
CPT/HCPCS: 71045; 87635; 99284

== ENCOUNTER → 2021-02-26 | Outpatient (CLI) | payer BC ==
[2021-02-27 01:21] LABS: Albumin 4.8 g/dL (3.80-4.90); Albumin/Globulin Ratio 2.09 (1.60-3.17); Anion Gap 12.4 mmol/L (4.00-12.00); BUN/Creat Ratio 15.45 Ratio (12.00-20.00); Calcium 10.1 mg/dL (8.7-10.3); Carbon Dioxide 25.6 mmol/L (21.6-31.8); Globulin 2.3 g/dL (1.6-3.3); Non-African American GFR(CKD) 87.1 (60.0-200.0); Potassium 4.2 mmol/L (3.5-5.5); Total Bilirubin 0.8 mg/dL (0.3-1.2); Total Protein 7.1 g/dL (6.2-8.2)
== END | disposition home or self-care (01) ==
LOC: LABWHC1 10:56
PROVIDERS: ATTEND Internal Medicine Interventional Cardiology
DX: R00.2 Palpitations (principal)
CPT/HCPCS: 36415; 80053

== ENCOUNTER 2021-03-22 10:26 | Emergency (ER) | payer BC ==
[2021-03-22 11:26] VITALS: BP 134/83; PULSE 80; RESP 18; TEMP 98.7
--- NOTE | 2021-03-22 11:29 | ED ---
URI HPI - General Chief Complaint: Upper Respiratory Infection Stated Complaint: Congestion/Cough Time Seen by Provider: 03/22/21 11:28 Source: patient, RN notes reviewed Mode of arrival: ambulatory Limitations: no limitations - History of Present Illness Initial Comments: This a 35-year-old male presents emergency Department chief complaint of cough congestion. Patient states he's been sick for last 3 days. He states is progressively getting worse. He states he woke up and sweats last night. Patient denies any known fever he is vaccinated for COVID-19. Patient denies any sick contacts. Patient denies any GI symptoms including nausea vomiting diarrhea constipation or shortness breath no chest pain. - Related Data Home Medications Medication Instructions Recorded Confirmed Loratadine 10 mg PO DAILY 03/09/20 03/09/20 Allergies Allergy/AdvReac Type Severity Reaction Status Date / Time cat dander Allergy Swelling Verified 03/22/21 11:26 Review of Systems ROS Statement: Those systems with pertinent positive or pertinent negative responses have been documented in the HPI. ROS Other: All systems not noted in ROS Statement are negative. Past Medical History Past Medical History: No Reported History Additional Past Medical History / Comment(s): seasonal allergies History of Any Multi-Drug Resistant Organisms: MRSA Date of last positivie culture/infection: 04/02/19 MDRO Source:: Toe, right First Past Surgical History: Adenoidectomy, Ear Surgery, Hernia Repair, Orthopedic Surgery Additional Past Surgical History / Comment(s): R wrist Past Psychological History: No Psychological Hx Reported Smoking Status: Never smoker Past Alcohol Use History: Occasional Past Drug Use History: None Reported General Exam Limitations: no limitations General appearance: alert, in no apparent distress Head exam: Present: atraumatic, normocephalic, normal inspection Eye exam: Present: normal appearance, PERRL, EOMI. Absent: scleral icterus, conjunctival injection, periorbital swelling ENT exam: Present: mucous membranes moist, TM's normal bilaterally. Absent: normal oropharynx (Postnasal drainage) Neck exam: Present: normal inspection, full ROM. Absent: tenderness, meningismus, lymphadenopathy Respiratory exam: Present: normal lung sounds bilaterally. Absent: respiratory distress, wheezes, rales, rhonchi, stridor Cardiovascular Exam: Present: regular rate, normal rhythm, normal heart sounds. Absent: systolic murmur, diastolic murmur, rubs, gallop, clicks Neurological exam: Present: alert, oriented X3, CN II-XII intact Course Vital Signs 03/22/21 11:24 Temperature 98.7 F Pulse Rate 80 Respiratory 18 Rate Blood Pressure 134/83 O2 Sat by Pulse 95 Oximetry Medical Decision Making - Medical Decision Making 35-year-old presented from for cough congestion, COVID-19 Negative patient be discharged in stable condition. - Lab Data Lab Results 03/22/21 Range/Units 11:28 Coronavirus (PCR) Not Detected (Not Detectd) Disposition Clinical Impression: Acute upper respiratory infection Disposition: HOME SELF-CARE Condition: Stable Instructions (If sedation given, give patient instructions): Upper Respiratory Infection (ED) Additional Instructions: Please return to the Emergency Department if symptoms worsen or any other concerns. Is patient prescribed a controlled substance at d/c from ED?: No Referrals: None,Stated [Primary Care Provider] - 1-2 days Time of Disposition: 12:11
== END 2021-03-22 12:41 | disposition home or self-care (01) ==
LOC: EC 10:26
DX: J06.9 Acute upper respiratory infection, unspecified (principal); Z20.822 Contact with and (suspected) exposure to COVID-19; Z91.09 Other allergy status, other than to drugs and biological substances; Z23 Encounter for immunization
CPT/HCPCS: 87635; 99283

== ENCOUNTER 2022-01-17 14:02 | Emergency (ER) | payer BC ==
[2022-01-17 14:07] VITALS: BP 140/99; PULSE 81; RESP 16; TEMP 98.1
[2022-01-17] MEDS ORDERED: PROPARACAINE 0.5% OPHTH DROPS 15 ML BTL RIGHT EYE STA (14:31)
[2022-01-17] MEDS ORDERED: FLUORESCEIN STRIPS 1 MG STRIP RIGHT EYE ONE (14:31)
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
[2022-01-17] MEDS ORDERED: TOBRAMYCIN 0.3% OPHTH DROPS 5 ML BTL RIGHT EYE STA (15:06)
== END 2022-01-17 15:17 | disposition home or self-care (01) ==
LOC: EC 14:02
DX: T23.131A Burn of first degree of multiple right fingers (nail), not including thumb, initial encounter (principal); H10.89 Other conjunctivitis; Z91.09 Other allergy status, other than to drugs and biological substances
CPT/HCPCS: 99283

== ENCOUNTER 2022-03-25 03:51 | Emergency (ER) | payer BC ==
[2022-03-25 04:01] VITALS: BP 133/98; PULSE 78; RESP 16; TEMP 98.2
[2022-03-25] MEDS ORDERED: ACETAMINOPHEN TAB 500 MG TAB PO STA (04:43)
[2022-03-25] MEDS ORDERED: IBUPROFEN 600 MG TAB PO STA (04:43)
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
--- NOTE | 2022-03-25 05:29 | XR ---
EXAMINATION TYPE: XR lumbar spine 2 or 3V DATE OF EXAM: 03/25/2022 COMPARISON: NONE HISTORY: Pain TECHNIQUE: 3 views FINDINGS: Lumbar vertebrae abnormal spacing and alignment. Posterior elements are intact. Sacroiliac joints are intact. No compression fracture. IMPRESSION: Normal lumbar spine exam.
== END 2022-03-25 05:58 | disposition home or self-care (01) ==
LOC: EC 03:51
DX: M25.519 Pain in unspecified shoulder (principal); M25.539 Pain in unspecified wrist; M54.9 Dorsalgia, unspecified; Z91.048 Other nonmedicinal substance allergy status; V89.2XXA Person injured in unspecified motor-vehicle accident, traffic, initial encounter; Y92.410 Unspecified street and highway as the place of occurrence of the external cause
CPT/HCPCS: 72100; 99283

== ENCOUNTER 2022-05-21 22:27 | Emergency (ER) | payer BC ==
[2022-05-21 22:37] VITALS: BP 130/71; PULSE 106; RESP 18; TEMP 98.3
--- NOTE | 2022-05-21 23:28 | XR ---
EXAMINATION TYPE: XR foot limited LT DATE OF EXAM: 05/21/2022 COMPARISON: NONE HISTORY: Fall. Pain TECHNIQUE: 2 views FINDINGS: Metatarsals are intact. I see no fracture nor dislocation. Joint spaces are normal. IMPRESSION: Negative left foot exam. No fracture.
--- NOTE | 2022-05-21 23:28 | XR ---
EXAMINATION TYPE: XR ankle limited LT DATE OF EXAM: 05/21/2022 COMPARISON: NONE HISTORY: Fall. Pain TECHNIQUE: 2 views FINDINGS: Ankle mortise is anatomic. There is minimal soft tissue swelling over the lateral malleolus . No fracture seen. Joint spaces are fairly normal. IMPRESSION: Mild lateral soft tissue swelling. No fracture seen.
--- NOTE | 2022-05-21 23:40 | ED ---
Lower Extremity Injury HPI - General Chief Complaint: Extremity Injury, Lower Stated Complaint: Fall-L ankle injury Time Seen by Provider: 05/21/22 23:16 Source: patient, family, RN notes reviewed, old records reviewed Mode of arrival: wheelchair Limitations: physical limitation - History of Present Illness Initial Comments: This 36-year-old male to the emergency department today for evaluation. Patient presents today status post fall trip and fall fall from standing left ankle pain. Swelling and edema left ankle difficulty bearing weight no other injury noted. Follows mechanical in nature. MD Complaint: leg injury -: hour(s) Injury: Ankle: Left Type of Injury: blunt, inversion Place: home Severity: moderate Severity scale (1-10): 4 Improves With: nothing Worsens With: nothing Context: fall Other Symptoms: loss of consciousness Treatments Prior to Arrival: NSAIDS - Related Data Home Medications Medication Instructions Recorded Confirmed Loratadine 10 mg PO DAILY 03/09/20 03/09/20 Previous Rx's Medication Instructions Recorded Benzonatate [Tessalon Perles] 200 mg PO TID #15 cap 03/22/21 Allergies Allergy/AdvReac Type Severity Reaction Status Date / Time cat dander Allergy Swelling Verified 05/21/22 22:34 Review of Systems ROS Statement: Those systems with pertinent positive or pertinent negative responses have been documented in the HPI. ROS Other: All systems not noted in ROS Statement are negative. Past Medical History Past Medical History: No Reported History Additional Past Medical History / Comment(s): seasonal allergies History of Any Multi-Drug Resistant Organisms: MRSA Date of last positivie culture/infection: 04/02/19 MDRO Source:: Toe, right First Past Surgical History: Adenoidectomy, Ear Surgery, Hernia Repair, Orthopedic Surgery Additional Past Surgical History / Comment(s): R wrist Past Psychological History: No Psychological Hx Reported Smoking Status: Never smoker Past Alcohol Use History: Occasional Past Drug Use History: None Reported General Exam Limitations: physical limitation General appearance: alert, in no apparent distress Head exam: Present: atraumatic, normocephalic, normal inspection Eye exam: Present: normal appearance, PERRL, EOMI. Absent: scleral icterus, conjunctival injection, periorbital swelling ENT exam: Present: normal exam, mucous membranes moist Neck exam: Present: normal inspection. Absent: tenderness, meningismus, lymphadenopathy Respiratory exam: Present: normal lung sounds bilaterally. Absent: respiratory distress, wheezes, rales, rhonchi, stridor Cardiovascular Exam: Present: normal rhythm, tachycardia, normal heart sounds. Absent: systolic murmur, diastolic murmur, rubs, gallop, clicks GI/Abdominal exam: Present: soft, normal bowel sounds. Absent: distended, tenderness, guarding, rebound, rigid Extremities exam: Present: normal inspection, full ROM, normal capillary refill. Absent: tenderness, pedal edema, joint swelling, calf tenderness Back exam: Present: normal inspection Neurological exam: Present: alert, oriented X3, CN II-XII intact Psychiatric exam: Present: normal affect, normal mood Skin exam: Present: warm, dry, intact, normal color. Absent: rash Course Vital Signs 05/21/22 22:34 Temperature 98.3 F Pulse Rate 106 H Respiratory 18 Rate Blood Pressure 130/71 O2 Sat by Pulse 96 Oximetry - Reevaluation(s) Reevaluation #1: 05/21/22 23:39 Medical records reviewed Reevaluation #2: 05/21/22 23:39 Patient has adequate pain control Reevaluation #3: 05/21/22 23:39 Patient informed results questions answered Medical Decision Making - Medical Decision Making 36 male to the emergency department slip and fall left ankle sprain no acute disease noted. Patient can be discharged home - Radiology Data Radiology results: report reviewed (X-ray left ankle foot negative for traumatic injury), image reviewed Disposition Clinical Impression: Left ankle pain, Fall Disposition: HOME SELF-CARE Condition: Good Instructions (If sedation given, give patient instructions): Ankle Sprain (ED) Is patient prescribed a controlled substance at d/c from ED?: No Referrals: Teresa Fatima [Primary Care Provider] - 1-2 days Time of Disposition: 23:40
[2022-05-22] MEDS ORDERED: ACETAMINOPHEN TAB 500 MG TAB PO STA (00:15)
[2022-05-22] MEDS ORDERED: IBUPROFEN 800 MG TAB PO STA (00:15)
--- NOTE | 2022-05-22 00:16 | ED ---
Medical Decision Making - Medical Decision Making This is an addendum to add consulting physician to disposition Disposition Clinical Impression: Left ankle pain, Fall Disposition: HOME SELF-CARE Condition: Good Instructions (If sedation given, give patient instructions): Ankle Sprain (ED) Is patient prescribed a controlled substance at d/c from ED?: No Referrals: Teresa Fatima [Primary Care Provider] - 1-2 days Martin Akins MD [STAFF PHYSICIAN] - 1-2 days
== END 2022-05-22 00:31 | disposition home or self-care (01) ==
LOC: EC 22:27
DX: M25.572 Pain in left ankle and joints of left foot (principal); Z91.048 Other nonmedicinal substance allergy status; W01.0XXA Fall on same level from slipping, tripping and stumbling without subsequent striking against object, initial encounter; Y92.89 Other specified places as the place of occurrence of the external cause
CPT/HCPCS: 99283

== ENCOUNTER 2022-12-28 13:07 | Emergency (ER) | payer BC ==
[2022-12-28 13:20] VITALS: BP 136/87; PULSE 74; RESP 16; TEMP 98.6
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
== END 2022-12-28 14:11 | disposition home or self-care (01) ==
LOC: EC 13:07
DX: T23.201A Burn of second degree of right hand, unspecified site, initial encounter (principal); T31.0 Burns involving less than 10% of body surface; Z91.048 Other nonmedicinal substance allergy status; W40.8XXA Explosion of other specified explosive materials, initial encounter
CPT/HCPCS: 16020; 99283

== ENCOUNTER 2023-05-12 15:10 | Emergency (ER) | payer OTHER, BC, MEDICAID ==
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
[2023-05-12] MEDS ORDERED: IBUPROFEN 800 MG TAB PO STA (16:19)
[2023-05-12] MEDS ORDERED: ACETAMINOPHEN TAB 500 MG TAB PO STA (16:19)
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
[2023-05-12 18:26] VITALS: BP 150/84; PULSE 66; RESP 18; TEMP 98.1
== END 2023-05-12 18:19 | disposition home or self-care (01) ==
LOC: EC 15:10
DX: S16.1XXA Strain of muscle, fascia and tendon at neck level, initial encounter (principal); Z88.8 Allergy status to other drugs, medicaments and biological substances; V49.40XA Driver injured in collision with unspecified motor vehicles in traffic accident, initial encounter
CPT/HCPCS: 71046; 72050; 72100; 99284

== ENCOUNTER 2023-06-27 03:18 | Emergency (ER) | payer MEDICAID, BC ==
[2023-06-27] MEDS ORDERED: IBUPROFEN 600 MG TAB PO STA (03:37)
[2023-06-27] MEDS ORDERED: AMOXIC-POT CLAV 875-125MG 1 EACH TAB PO STA (03:37)
--- NOTE | 2023-06-27 03:40 | ED ---
General Adult HPI - General Chief complaint: Dental/Oral Stated complaint: Dental Pain Time Seen by Provider: 06/27/23 03:28 Source: patient, RN notes reviewed, old records reviewed Mode of arrival: ambulatory Limitations: no limitations - History of Present Illness Initial comments: 37-year-old male presenting with dental pain on the right side both upper and lower. Patient has poor dentition and is awaiting evaluation by a dentist. He's been taking Tylenol without significant relief as well as [id number] topical preparations for dental pain. - Related Data Home Medications Medication Instructions Recorded Confirmed Loratadine 10 mg PO DAILY 03/09/20 03/09/20 Previous Rx's Medication Instructions Recorded Benzonatate [Tessalon Perles] 200 mg PO TID #15 cap 03/22/21 Amoxic-Pot Clav 875-125Mg 1 tab PO Q12HR 10 Days #20 tab 06/27/23 [Augmentin 875-125] Ibuprofen [Motrin] 600 mg PO Q8HR PRN #24 tab 06/27/23 Allergies Allergy/AdvReac Type Severity Reaction Status Date / Time cat dander Allergy Swelling Verified 06/27/23 03:26 Review of Systems ROS Statement: Those systems with pertinent positive or pertinent negative responses have been documented in the HPI. ROS Other: All systems not noted in ROS Statement are negative. Past Medical History Past Medical History: No Reported History Additional Past Medical History / Comment(s): seasonal allergies, ED medication , History of Any Multi-Drug Resistant Organisms: MRSA Date of last positivie culture/infection: 04/02/19 MDRO Source:: Toe, right First Past Surgical History: Adenoidectomy, Ear Surgery, Hernia Repair, Orthopedic Surgery Additional Past Surgical History / Comment(s): R wrist Past Psychological History: No Psychological Hx Reported Smoking Status: Never smoker Past Alcohol Use History: Occasional Past Drug Use History: None Reported General Exam Limitations: no limitations General appearance: alert, in no apparent distress Head exam: Present: atraumatic, normocephalic Eye exam: Present: normal appearance, PERRL ENT exam: Present: other (Dental caries both upper and lower right molars) Respiratory exam: Present: normal lung sounds bilaterally. Absent: respiratory distress Cardiovascular Exam: Present: regular rate, normal rhythm GI/Abdominal exam: Present: soft. Absent: distended, tenderness Course Vital Signs 06/27/23 03:25 Temperature 98.2 F Pulse Rate 75 Respiratory 18 Rate Blood Pressure 145/99 O2 Sat by Pulse 96 Oximetry Medical Decision Making - Medical Decision Making Was pt. sent in by a medical professional or institution (RADHA Menno, [employer], urgent care, hospital, or residential...) When possible be specific @ -No Did you speak to anyone other than the patient for history (EMS, parent, family, police, friend...)? What history was obtained from this source @ -No Did you review nursing and triage notes (agree or disagree)? Why? @ -I reviewed and agree with nursing and triage notes Were old charts reviewed (outside hosp., previous admission, EMS record, old EKG, old radiological studies, urgent care reports/EKG's, residential records)? Report findings @ -No old charts were reviewed Differential Diagnosis (chest pain, altered mental status, abdominal pain women, abdominal pain men, vaginal bleeding, weakness, fever, dyspnea, syncope, headache, dizziness, GI bleed, back pain, seizure, CVA, palpatations, mental health, musculoskeletal)? @ Dental caries, pulpitis, dental abscess EKG interpreted by me (3pts min.). @ -As above X-rays interpreted by me (1pt min.). @ -None done CT interpreted by me (1pt min.). @ -None done U/S interpreted by me (1pt. min.). @ -None done What testing was considered but not performed or refused? (CT, X-rays, U/S, labs)? Why? @ -None What meds were considered but not given or refused? Why? @ -None Did you discuss the management of the patient with other professionals (professionals i.e. RADHA Menon, [employer], lab, RT, psych nurse, social work case manager, color print inspector, teacher, sales officer, case worker)? Give summary @ -No Was smoking cessation discussed for >3mins.? @ -No Was critical care preformed (if so, how long)? @ -No Were there social determinants of health that impacted care today? How? (Homelessness, low income, unemployed, alcoholism, drug addiction, transportation, low edu. Level, literacy, decrease access to med. care, longterm, rehab)? @ -No Was there de-escalation of care discussed even if they declined (Discuss DNR or withdrawal of care, Hospice)? DNR status @ -No What co-morbidities impacted this encounter? (DM, HTN, Smoking, COPD, CAD, Cance r, CVA, ARF, Chemo, Hep., AIDS, mental health diagnosis, sleep apnea, morbid obesity)? @ -None Was patient admitted / discharged? Hospital course, mention meds given and route, prescriptions, significant lab abnormalities, going to OR and other pertinent info. @ Patient with likely pulpitis, dental pain, dental caries on exam. No drainable abscess. Afebrile otherwise well-appearing. Patient prescribed anti- inflammatories and antibiotics and will follow closely with his dentist. Undiagnosed new problem with uncertain prognosis? @ -No Drug Therapy requiring intensive monitoring for toxicity (Heparin, Nitro, Insulin, Cardizem)? @ -No Were any procedures done? @ -No Diagnosis/symptom? @ -Toothache Acute, or Chronic, or Acute on Chronic? @ Acute Uncomplicated (without systemic symptoms) or Complicated (systemic symptoms)? @ -default Side effects of treatment? @ -No Exacerbation, Progression, or Severe Exacerbation? @ -No Poses a threat to life or bodily function? How? (Chest pain, USA, MD, pneumonia, PE, COPD, DKA, ARF, appy, cholecystitis, CVA, Diverticulitis, Homicidal, Suicidal, threat to staff... and all critical care pts) @ -No Disposition Clinical Impression: Dental caries, Toothache Disposition: HOME SELF-CARE Condition: Fair Instructions (If sedation given, give patient instructions): Toothache (ED) Prescriptions: Amoxic-Pot Clav 875-125Mg [Augmentin 875-125] 1 tab PO Q12HR 10 Days #20 tab Ibuprofen [Motrin] 600 mg PO Q8HR PRN #24 tab PRN Reason: Pain Is patient prescribed a controlled substance at d/c from ED?: No Referrals: Teresa Fatima [Primary Care Provider] - 1-2 days Time of Disposition: 03:39
[2023-06-27 03:47] VITALS: BP 145/99; PULSE 75; RESP 18; TEMP 98.2
== END 2023-06-27 03:51 | disposition home or self-care (01) ==
LOC: EC 03:18
DX: K02.9 Dental caries, unspecified (principal); Z88.8 Allergy status to other drugs, medicaments and biological substances
CPT/HCPCS: 99282

== ENCOUNTER 2023-07-05 07:30 | Emergency (ER) | payer BC, MEDICAID ==
[2023-07-05] MEDS ORDERED: ONDANSETRON ODT 4 MG TAB PO STA (07:38)
[2023-07-05] MEDS ORDERED: ACETAMINOPHEN TAB 500 MG TAB PO STA (07:38)
--- NOTE | 2023-07-05 08:07 | ED ---
Fever HPI - General Chief Complaint: Fever Stated Complaint: Fever Time Seen by Provider: 07/05/23 07:37 Source: patient, RN notes reviewed Mode of arrival: ambulatory Limitations: no limitations - History of Present Illness Initial Comments: This is a 37-year-old male who presents to the emergency department for a fever, nausea, and headaches. States that yesterday he woke up in the morning covered in sweat, took his temperature and it was elevated at 102F. He has had coughing and whenever he coughs he develops a headache. The headache is describ ed as a pressure sensation, however it is not prominent when he is not coughing. Denies any history of asthma. Denies any chest pain or shortness of breath. Also denies any sick contacts. He is currently taking amoxicillin and ibuprofen for a dental infection, and states that the ibuprofen seems to be helping the fever. His dental infection has been improving. He does also report associated nausea. He tried taking Pepto Bismol with some relief of the nausea. MD Complaint: fever - Related Data Home Medications Medication Instructions Recorded Confirmed Loratadine 10 mg PO DAILY 03/09/20 03/09/20 Previous Rx's Medication Instructions Recorded Benzonatate [Tessalon Perles] 200 mg PO TID #15 cap 03/22/21 Amoxic-Pot Clav 875-125Mg 1 tab PO Q12HR 10 Days #20 tab 06/27/23 [Augmentin 875-125] Ibuprofen [Motrin] 600 mg PO Q8HR PRN #24 tab 06/27/23 Benzonatate [Tessalon Perle] 200 mg PO TID PRN #15 capsule 07/05/23 Ondansetron Odt [Zofran Odt] 4 mg PO Q8HR PRN #20 tab 07/05/23 Allergies Allergy/AdvReac Type Severity Reaction Status Date / Time cat dander Allergy Swelling Verified 07/05/23 07:35 Review of Systems ROS Statement: Those systems with pertinent positive or pertinent negative responses have been documented in the HPI. ROS Other: All systems not noted in ROS Statement are negative. Past Medical History Past Medical History: No Reported History Additional Past Medical History / Comment(s): seasonal allergies, ED medication , History of Any Multi-Drug Resistant Organisms: MRSA Date of last positivie culture/infection: 04/02/19 MDRO Source:: Toe, right First Past Surgical History: Adenoidectomy, Ear Surgery, Hernia Repair, Orthopedic Surgery Additional Past Surgical History / Comment(s): R wrist Past Psychological History: No Psychological Hx Reported Smoking Status: Never smoker Past Alcohol Use History: Occasional Past Drug Use History: None Reported General Exam Limitations: no limitations General appearance: alert, in no apparent distress Head exam: Present: atraumatic, normocephalic, normal inspection ENT exam: Present: normal oropharynx, mucous membranes moist Neck exam: Present: normal inspection. Absent: tenderness, meningismus, lymphadenopathy Respiratory exam: Present: normal lung sounds bilaterally. Absent: respiratory distress, wheezes, rales, rhonchi, stridor Cardiovascular Exam: Present: regular rate, normal rhythm, normal heart sounds. Absent: systolic murmur, diastolic murmur, rubs, gallop, clicks Neurological exam: Present: alert, oriented X3, CN II-XII intact Psychiatric exam: Present: normal affect, normal mood Skin exam: Present: warm, dry, intact, normal color. Absent: rash Course Vital Signs 07/05/23 07/05/23 07/05/23 07:35 08:06 09:52 Temperature 101.4 F H 99.8 F H Pulse Rate 120 H 109 H 84 Respiratory 16 18 18 Rate Blood Pressure 122/72 108/76 O2 Sat by Pulse 97 98 Oximetry Medical Decision Making - Medical Decision Making This is a 37-year-old male who presents to the emergency department for a fever, cough, headaches, and nausea. Was pt. sent in by a medical professional or institution? @ -No Did you speak to anyone other than the patient for history? @ -No Did you review nursing and triage notes? @ -Yes, and I agree, it is accurate with regards to the patient's symptoms. Were old charts reviewed? @ -No Differential Diagnosis? @ -Differential Fever: Pneumonia, viral URI, endocarditis, myocarditis, pericarditis, otitis, sinusitis, peritonsillar Abscess, retropharyngeal Abscess, epiglottitis, peritonitis, appendicitis, Zena cystitis, diverticulitis, hepatitis, colitis, UTI, PID, TOA, pyelonephritis, prostatitis, epididymitis, meningitis, encephalitis, pulmonary embolism, CVA, thyroid storm, pancreatitis, adrenal crisis, cavernous sinus thrombosis, this is not meant to be an all-inclusive list. EKG interpreted by me (3pts min.)? @ -Not obtained X-rays interpreted by me (1pt min.)? @ -Not obtained CT interpreted by me (1pt min.)? @ -Not obtained U/S interpreted by me (1pt. min.)? @ -Not obtained What testing was considered but not performed? (CT, X-rays, U/S, labs)? Why? @ -None What meds were considered but not given? Why? @ -None Did you discuss the management of the patient with other professionals? @ -No Did you reconcile home meds? @ -No Was smoking cessation discussed for >3mins.? @ -No Was critical care preformed (if so, how long)? @ -No Were there social determinants of health that impacted care today? How? (Homelessness, low income, unemployed, alcoholism, drug addiction, transportation, low edu. Level, literacy, decrease access to med. care, group home, rehab)? @ -No Was there de-escalation of care discussed even if they declined? (Discuss DNR or withdrawal of care, Hospice)? @ -No What co-morbidities impacted this encounter? (DM, HTN, Smoking, COPD, CAD, Cancer, CVA, Hep., AIDS, mental health diagnosis, sleep apnea, morbid obesity)? @ -None Was patient admitted / discharged? @ -Discharged. COVID, influenza, and RSV testing were negative. Patient was febrile on arrival with a temperature of 101.4 degrees Fahrenheit. He was treated with Tylenol as well as Zofran for his nausea with significant relief in symptoms. Symptoms likely related to a viral URI. Rx for Zofran and Tessalon Perles provided with dosing instructions reviewed. Advised continuing to alternate with Ibuprofen and Tylenol as needed for any additional fevers. Reji gonzalez discharged home in stable condition. Undiagnosed new problem with uncertain prognosis? @ -None Drug Therapy requiring intensive monitoring for toxicity (Heparin, Nitro, Insulin, Cardizem)? @ -None Were any procedures done? @ -None Diagnosis/symptom? @ -Viral URI, fever Acute, or Chronic, or Acute on Chronic? @ -Acute Uncomplicated (without systemic symptoms) or Complicated (systemic symptoms)? @ -Uncomplicated Side effects of treatment? @ -None Exacerbation, Progression, or Severe Exacerbation] @ -Not applicable Poses a threat to life or bodily function? @ -No Return precautions reviewed in depth, the patient is instructed to return to the emergency department with any new, worsening, or concerning symptoms. Patient verbalized understanding. This case was discussed in detail with the attending ED physician, Dr. Montalvo. Presentation, findings, and treatment plan discussed in detail as well. - Lab Data Lab Results 07/05/23 Range/Units 08:24 Influenza Type A (PCR) Not Detected (Not Detectd) Influenza Type B (PCR) Not Detected (Not Detectd) RSV (PCR) Not Detected (Not Detectd) SARS-CoV-2 (PCR) Not Detected (Not Detectd) Disposition Clinical Impression: Viral URI, Fever Disposition: HOME SELF-CARE Instructions (If sedation given, give patient instructions): Fever in Adults (ED), Upper Respiratory Infection (ED) Additional Instructions: Return to the emergency department with any new, worsening, or concerning symptoms. Alternate with ibuprofen and Tylenol as needed for fevers. You can take the Tessalon Perles up to every 8 hours as needed for the cough. You can take the Zofran up to every 8 hours as needed for nausea and vomiting. Make sure that you remain well-hydrated and get plenty of rest. Follow up with your primary care provider in 1-2 days. Prescriptions: Benzonatate [Tessalon Perle] 200 mg PO TID PRN #15 capsule PRN Reason: Cough Ondansetron Odt [Zofran Odt] 4 mg PO Q8HR PRN #20 tab PRN Reason: Nausea And Vomiting Is patient prescribed a controlled substance at d/c from ED?: No Referrals: Teresa Fatima [Primary Care Provider] - 1-2 days Time of Disposition: :28
[2023-07-05 08:31] VITALS: RESP 18; TEMP 99.8
[2023-07-05 10:13] VITALS: BP 108/76; PULSE 84
== END 2023-07-05 09:52 | disposition home or self-care (01) ==
LOC: EC 07:30
DX: J06.9 Acute upper respiratory infection, unspecified (principal); Z20.822 Contact with and (suspected) exposure to COVID-19; Z91.09 Other allergy status, other than to drugs and biological substances
CPT/HCPCS: 87636; 99283

== ENCOUNTER 2023-07-06 11:28 | Emergency (ER) | payer MEDICAID ==
[2023-07-06 11:51] VITALS: RESP 18
--- NOTE | 2023-07-06 11:57 | ED ---
Skin/Abscess/FB HPI - General Chief complaint: Skin/Abscess/Foreign Body Stated complaint: Hives,Fever,Cough Time Seen by Provider: 07/06/23 11:34 Source: patient, RN notes reviewed Mode of arrival: ambulatory Limitations: no limitations - History of Present Illness Initial comments: Patient is a 37 from an presented ER with chief complaint of a rash. Patient was seen here yesterday for fever and tested negative for flu, Covid, RSV. Patient was prescribed Augmentin on the first of the month for a dental infection. Patient has 2 doses left. Patient states he woke up this morning with a rash all over his body that is itchy. Patient denies any difficulty breathing. Patient states that he has taken amoxicillin in the past without reaction. Patient denies any new soaps, lotions, or foods. Patient denies any other complaints. - Related Data Home Medications Medication Instructions Recorded Confirmed Loratadine 10 mg PO DAILY 03/09/20 03/09/20 Previous Rx's Medication Instructions Recorded Benzonatate [Tessalon Perles] 200 mg PO TID #15 cap 03/22/21 Amoxic-Pot Clav 875-125Mg 1 tab PO Q12HR 10 Days #20 tab 06/27/23 [Augmentin 875-125] Ibuprofen [Motrin] 600 mg PO Q8HR PRN #24 tab 06/27/23 Benzonatate [Tessalon Perle] 200 mg PO TID PRN #15 capsule 07/05/23 Ondansetron Odt [Zofran Odt] 4 mg PO Q8HR PRN #20 tab 07/05/23 Allergies Allergy/AdvReac Type Severity Reaction Status Date / Time cat dander Allergy Swelling Verified 07/06/23 11:33 Review of Systems ROS Statement: Those systems with pertinent positive or pertinent negative responses have been documented in the HPI. ROS Other: All systems not noted in ROS Statement are negative. Past Medical History Past Medical History: No Reported History Additional Past Medical History / Comment(s): seasonal allergies, ED medication , History of Any Multi-Drug Resistant Organisms: MRSA Date of last positivie culture/infection: 04/02/19 MDRO Source:: Toe, right First Past Surgical History: Adenoidectomy, Ear Surgery, Hernia Repair, Orthopedic Surgery Additional Past Surgical History / Comment(s): R wrist Past Psychological History: No Psychological Hx Reported Smoking Status: Never smoker Past Alcohol Use History: Occasional Past Drug Use History: None Reported General Exam Limitations: no limitations General appearance: alert, in no apparent distress Eye exam: Present: normal appearance, PERRL, EOMI. Absent: scleral icterus, conjunctival injection, periorbital swelling Pupils: Present: normal accommodation ENT exam: Present: normal exam, normal oropharynx, mucous membranes moist, TM's normal bilaterally Neck exam: Present: normal inspection. Absent: tenderness, meningismus, lymphadenopathy Respiratory exam: Present: normal lung sounds bilaterally. Absent: respiratory distress, wheezes, rales, rhonchi, stridor Cardiovascular Exam: Present: regular rate, normal rhythm, normal heart sounds. Absent: systolic murmur, diastolic murmur, rubs, gallop, clicks Neurological exam: Present: alert, oriented X3, CN II-XII intact Psychiatric exam: Present: normal affect, normal mood Skin exam: Present: warm, dry, intact, rash (papular rash bilateral arms, stomcach, neck, and legs) Course Vital Signs 07/06/23 07/06/23 11:31 12:01 Temperature 99.3 F 97.9 F Pulse Rate 108 H 98 Respiratory 18 18 Rate Blood Pressure 130/81 126/76 O2 Sat by Pulse 96 99 Oximetry Medical Decision Making - Medical Decision Making Was pt. sent in by a medical professional or institution ([facility], [employer]SP[employer] CON[employer], urgent care, hospital, or long term...) When possible be specific @ -No Did you speak to anyone other than the patient for history (EMS, parent, family, police, friend...)? What history was obtained from this source @ -No Did you review nursing and triage notes (agree or disagree)? Why? @ -I reviewed and agree with nursing and triage notes Were old charts reviewed (outside hosp., previous admission, EMS record, old EKG, old radiological studies, urgent care reports/EKG's, long term records)? Report findings @ -Yes, I reviewed ER visit from 06/27/23 and 07/05/23. Patient was prescribed augmentin on 06/27 for dental infection. Patient was diagnosed with viral illness with fever on 07/05. Differential Diagnosis (chest pain, altered mental status, abdominal pain women, abdominal pain men, vaginal bleeding, weakness, fever, dyspnea, syncope, headache, dizziness, GI bleed, back pain, seizure, CVA, palpatations, mental health, musculoskeletal)? @ -Drug rash, ALLERGIC reaction, uticaria, this list is not meant to be all- inclusive. EKG interpreted by me (3pts min.). @ -None X-rays interpreted by me (1pt min.). @ -None done CT interpreted by me (1pt min.). @ -None done U/S interpreted by me (1pt. min.). @ -None done What testing was considered but not performed or refused? (CT, X-rays, U/S, labs)? Why? @ -None What meds were considered but not given or refused? Why? @ -Antipyretics were considered but not given due to patient taking ibuprofen one hour prior to arrival in ER for fever control with improvement. Did you discuss the management of the patient with other professionals (professionals i.e. , PA, TRANSPORT CONDUCTOR, lab, RT, psych nurse, social worker assistant, field crew chief, teacher, security officer, ed case manager)? Give summary @ -No Was smoking cessation discussed for >3mins.? @ -No Was critical care preformed (if so, how long)? @ -No Were there social determinants of health that impacted care today? How? (Homelessness, low income, unemployed, alcoholism, drug addiction, transportation, low edu. Level, literacy, decrease access to med. care, fdc, rehab)? @ -No Was there de-escalation of care discussed even if they declined (Discuss DNR or withdrawal of care, Hospice)? DNR status @ -No What co-morbidities impacted this encounter? (DM, HTN, Smoking, COPD, CAD, Cancer, CVA, ARF, Chemo, Hep., AIDS, mental health diagnosis, sleep apnea, morbid obesity)? @ -None Was patient admitted / discharged? Hospital course, mention meds given and route, prescriptions, significant lab abnormalities, going to OR and other pertinent info. @ -Discharged. Patient is a 37 year old male presenting to the ER with a chief complaint of a rash. Vitals stable. Physical exam was significant for a papular rash on bilateral upper and lower extremities. Rash is also present on patient's neck and abdomen. Patient was in no signs of acute distress. No stridor or wheezing. Due to patient recently starting on Augmentin for dental infection I believe rash is due to this medication. I instructed patient to stop taking augmentin. Also take OTC benadryl for rash and to monitor for any worsening of symptoms. I advised him to follow-up with a dentist for infection in the next 1-2 days. Patient stated that his tooth pain has improved with antibiotics and he only has two doses left. I advised patient to continue using [id number] Tylenol and Motrin for fever control. Return parameters were discussed. Patient discharged stable condition with follow-up to PCP/dentist. Patient expressed understanding and agreement with care plan. Undiagnosed new problem with uncertain prognosis? @ -No Drug Therapy requiring intensive monitoring for toxicity (Heparin, Nitro, Insulin, Cardizem)? @ -No Were any procedures done? @ -No Diagnosis/symptom? @ -Drug rash Acute, or Chronic, or Acute on Chronic? @ -Acute Uncomplicated (without systemic symptoms) or Complicated (systemic symptoms)? @ -Uncomplicated Side effects of treatment? @ -No Exacerbation, Progression, or Severe Exacerbation? @ -No Poses a threat to life or bodily function? How? (Chest pain, [place], [place], pneumonia, PE, COPD, DKA, ARF, appy, cholecystitis, CVA, Diverticulitis, Homicidal, Suicidal, threat to staff... and all critical care pts) @ -No Disposition Clinical Impression: Drug rash Disposition: HOME SELF-CARE Condition: Stable Instructions (If sedation given, give patient instructions): Acute Rash (ED) Additional Instructions: Please take Benadryl every 4-8 hours for reaction. Continue Tylenol and Motrin for fever control. Please follow-up with PCP in the next 1-2 days. Return to the ER for any new or worsening symptoms. Is patient prescribed a controlled substance at d/c from ED?: No Referrals: Teresa Fatima [Primary Care Provider] - 1-2 days Time of Disposition: 11:57
[2023-07-06 12:15] VITALS: BP 126/76; PULSE 98; TEMP 97.9
== END 2023-07-06 12:06 | disposition home or self-care (01) ==
LOC: EC 11:28
DX: L27.0 Generalized skin eruption due to drugs and medicaments taken internally (principal); Z88.8 Allergy status to other drugs, medicaments and biological substances
CPT/HCPCS: 99283

== ENCOUNTER 2023-07-06 21:21 | Emergency (ER) | payer MEDICAID ==
--- NOTE | 2023-07-06 21:39 | ED ---
General Adult HPI - General Stated complaint: High Heart Rate, Hives - History of Present Illness Initial comments: 37-year-old male presenting to the ED with chief complaint of rash. Was seen here earlier today and discharged home after being instructed to take Benadryl. States since then rash has worsened. Rash has spread across his extremities. Rash is not itchy. Also notes continued cough. No chest pain or shortness of breath. No fever. No other complaints. - Related Data Home Medications Medication Instructions Recorded Confirmed Loratadine 10 mg PO DAILY 03/09/20 03/09/20 Previous Rx's Medication Instructions Recorded Benzonatate [Tessalon Perles] 200 mg PO TID #15 cap 03/22/21 Amoxic-Pot Clav 875-125Mg 1 tab PO Q12HR 10 Days #20 tab 06/27/23 [Augmentin 875-125] Ibuprofen [Motrin] 600 mg PO Q8HR PRN #24 tab 06/27/23 Benzonatate [Tessalon Perle] 200 mg PO TID PRN #15 capsule 07/05/23 Ondansetron Odt [Zofran Odt] 4 mg PO Q8HR PRN #20 tab 07/05/23 Allergies Allergy/AdvReac Type Severity Reaction Status Date / Time cat dander Allergy Swelling Verified 07/06/23 11:33 Review of Systems ROS Statement: Those systems with pertinent positive or pertinent negative responses have been documented in the HPI. ROS Other: All systems not noted in ROS Statement are negative. Past Medical History Past Medical History: No Reported History Additional Past Medical History / Comment(s): seasonal allergies, ED medication , History of Any Multi-Drug Resistant Organisms: MRSA Date of last positivie culture/infection: 04/02/19 MDRO Source:: Toe, right First Past Surgical History: Adenoidectomy, Ear Surgery, Hernia Repair, Orthopedic Surgery Additional Past Surgical History / Comment(s): R wrist Past Psychological History: No Psychological Hx Reported Smoking Status: Never smoker Past Alcohol Use History: Occasional Past Drug Use History: None Reported General Exam General appearance: alert, in no apparent distress Eye exam: Present: normal appearance Respiratory exam: Present: normal lung sounds bilaterally Cardiovascular Exam: Present: regular rate, tachycardia GI/Abdominal exam: Present: soft Neurological exam: Present: alert, oriented X3 Skin exam: Present: other (Flat pinpoint rash across the extremities and trunk.) Course Vital Signs 07/06/23 07/06/23 21:38 23:25 Temperature 99.8 F H Pulse Rate 118 H 95 Respiratory 22 18 Rate Blood Pressure 124/70 121/80 O2 Sat by Pulse 95 98 Oximetry Medical Decision Making - Medical Decision Making Was pt. sent in by a medical professional or institution (, [facility], [facility] [facility], urgent care, hospital, or care home...) When possible be specific @ -No Did you speak to anyone other than the patient for history (EMS, parent, family, police, friend...)? What history was obtained from this source @ -No Did you review nursing and triage notes (agree or disagree)? Why? @ -I reviewed and agree with nursing and triage notes Were old charts reviewed (outside hosp., previous admission, EMS record, old EKG, old radiological studies, urgent care reports/EKG's, care home records)? Report findings @ -No old charts were reviewed Differential Diagnosis (chest pain, altered mental status, abdominal pain women, abdominal pain men, vaginal bleeding, weakness, fever, dyspnea, syncope, headache, dizziness, GI bleed, back pain, seizure, CVA, palpatations, mental health, musculoskeletal)? @ -SJS, TEN. This is not meant to be an all inclusive list. EKG interpreted by me (3pts min.). @ -None X-rays interpreted by me (1pt min.). @ -None done CT interpreted by me (1pt min.). @ -None done U/S interpreted by me (1pt. min.). @ -None done What testing was considered but not performed or refused? (CT, X-rays, U/S, labs)? Why? @ -None What meds were considered but not given or refused? Why? @ -None Did you discuss the management of the patient with other professionals (professionals i.e. [facility], [facility] [facility] [facility], lab, RT, psych nurse, social work associate, ophthalmologist, teacher, classifications officer cc/cm, watch caser)? Give summary @ -No Was smoking cessation discussed for >3mins.? @ -No Was critical care preformed (if so, how long)? @ -No Were there social determinants of health that impacted care today? How? (Homeles sness, low income, unemployed, alcoholism, drug addiction, transportation, low edu. Level, literacy, decrease access to med. care, fci, rehab)? @ -No Was there de-escalation of care discussed even if they declined (Discuss DNR or withdrawal of care, Hospice)? DNR status @ -No What co-morbidities impacted this encounter? (DM, HTN, Smoking, COPD, CAD, Cancer, CVA, ARF, Chemo, Hep., AIDS, mental health diagnosis, sleep apnea, morbid obesity)? @ -None Was patient admitted / discharged? Hospital course, mention meds given and route, prescriptions, significant lab abnormalities, going to OR and other pertinent info. @ -Discharge 37-year-old male presenting to the ED with concerns of rash. Patient previously here yesterday with concerns of fever and cough. At this time, patient reports fever resolved however still notes some slight cough. Rash is nonpruritic and on exam is flat. Does not appear ALLERGIC in nature. Rash likely viral. Advised follow-up with patient's PCP. Of note, patient and family notes tachycardia. States that this has been a persistent problem and patient is currently following with cardiology for this. Patient admits to currently wearing a cafeteria monitor. Currently denies chest pain or shortness of breath. Discharged home in stable condition. Discussed return precautions with patient who verbalizes agreement. Undiagnosed new problem with uncertain prognsi? @ -[No] Drug Therapy requiring intensive monitoring for toxicity (Heparin, Nitro, Insulin, Cardiem? @ -[No] Were any procedures on? @ -[No] Diagnosis/symptom? @ -Rash Acute, or Chronic, or Acute on Chronic? @ -Acute Uncomplicated (without systemic symptoms) or Complicated (systemic symptoms)? @ -Uncomplicated Side effects of treatment? @ [N] Exacerbation, Progression, or Severe Exacerbation? @ [N] Poses a threat to life or bodily function? How? (Chest pain, [place], [place], pneumonia, PE, COPD, DKA, ARF, appy, cholecystitis, CVA, Diverticulitis, Homicidal, Suicidal, threat to staff... and all critical care pts) @ [N] Disposition Clinical Impression: Rash Disposition: HOME SELF-CARE Condition: Good Instructions (If sedation given, give patient instructions): Viral Exanthem (ED) Additional Instructions: Please return to the Emergency Department if symptoms worsen or any other concerns. Please follow up with your primary care provider. Is patient prescribed a controlled substance at d/c from ED?: No Referrals: Teresa Fatima [Primary Care Provider] - 1-2 days Time of Disposition: 00:39
[2023-07-06 21:55] VITALS: TEMP 99.8
[2023-07-06 23:43] VITALS: BP 121/80; PULSE 95; RESP 18
== END 2023-07-07 00:49 | disposition home or self-care (01) ==
LOC: EC 21:21
DX: R21 Rash and other nonspecific skin eruption (principal)
CPT/HCPCS: 99284

== ENCOUNTER 2023-07-12 04:11 | Emergency (ER) | payer MEDICAID ==
[2023-07-12 04:48] VITALS: PULSE 103; RESP 20; TEMP 98.9
[2023-07-12 05:09] LABS: Basophils % (A) 0 %; Eosinophils # (A) 0.2 k/uL (0-0.7); Eosinophils % (A) 2 %; HCT 43.5 % (39.0-53.0); HGB 14.8 gm/dL (13.0-17.5); Lymphocytes # (A) 0.9 k/uL (1.0-4.8); Lymphocytes % (A) 12 %; MCH 30.4 pg (25.0-35.0); MCHC 34.1 g/dL (31.0-37.0); Mean Platelet Volume 7.4; Monocytes # (A) 0.4 k/uL (0-1.0); Monocytes % (A) 5 %; Neutrophils # (A) 5.8 k/uL (1.3-7.7); Neutrophils % (A) 78 %; Platelet Count 296 k/uL (150-450); RBC 4.88 m/uL (4.30-5.90); RDW 12.6 % (11.5-15.5); WBC 7.5 k/uL (3.8-10.6)
--- NOTE | 2023-07-12 05:13 | XR ---
EXAMINATION TYPE: XR chest 2V DATE OF EXAM: 07/12/2023 COMPARISON: Prior chest x-ray May 12, 2023 HISTORY: Cough TECHNIQUE: Frontal and lateral views of the chest are obtained. FINDINGS: There is new right Upper lobe pneumonic consolidation abutting the fissure. New patchy lef t basilar opacity favors atelectasis on frontal view was well seen on lateral view. No pleural effusi on or pneumothorax seen bilaterally. The cardiac silhouette size is stable and within normal limits. The osseous structures are intact. IMPRESSION: New anterior inferior right upper lobe pneumonic consolidation.
[2023-07-12 05:22] LABS: ALT 25 U/L (4-49); AST 31 U/L (17-59); African American GFR (CKD) >90 (>60 ml/min/1.73 sqM); Albumin 4.3 g/dL (3.5-5.0); Alkaline Phosphatase 77 U/L (38-126); Anion Gap 7 mmol/L; Blood Urea Nitrogen 17 mg/dL (9-20); Carbon Dioxide 29 mmol/L (22-30); Chloride 102 mmol/L (98-107); Glucose 102 mg/dL (74-99); Non-African American GFR(CKD) >90 (>60 ml/min/1.73 sqM); Potassium 4.3 mmol/L (3.5-5.1); Sodium 138 mmol/L (137-145); Total Bilirubin 0.8 mg/dL (0.2-1.3); Total Protein 7.3 g/dL (6.3-8.2)
[2023-07-12] MEDS ORDERED: LEVOFLOXACIN 500 MG TAB PO STA (06:52)
--- NOTE | 2023-07-12 06:57 | ED ---
General Adult HPI - General Chief complaint: Upper Respiratory Infection Stated complaint: pneumonia Time Seen by Provider: 07/12/23 05:53 Source: patient, RN notes reviewed, old records reviewed Mode of arrival: ambulatory Limitations: no limitations - History of Present Illness Initial comments: Patient is a 37-year-old male with no significant past medical history presents emergency department for upper respiratory symptoms. Was on amoxicillin for suspected pneumonia but stopped it last week. He had a drug rash for over one week which is unchanged from baseline. It is not pruritic. Denies chest pain. Endorses productive cough. Denies smoking history. Does have a history of ALLERGIES. Denies any fevers. His no other acute complaints at this time. Apparently pulse ox was 93-94% at home and presents for further evaluation. - Related Data Home Medications Medication Instructions Recorded Confirmed Loratadine 10 mg PO DAILY 03/09/20 03/09/20 Previous Rx's Medication Instructions Recorded Benzonatate [Tessalon Perles] 200 mg PO TID #15 cap 03/22/21 Amoxic-Pot Clav 875-125Mg 1 tab PO Q12HR 10 Days #20 tab 06/27/23 [Augmentin 875-125] Ibuprofen [Motrin] 600 mg PO Q8HR PRN #24 tab 06/27/23 Benzonatate [Tessalon Perle] 200 mg PO TID PRN #15 capsule 07/05/23 Ondansetron Odt [Zofran Odt] 4 mg PO Q8HR PRN #20 tab 07/05/23 Levofloxacin [Levaquin] 500 mg PO DAILY 10 Days #10 tab 07/12/23 Allergies Allergy/AdvReac Type Severity Reaction Status Date / Time cat dander Allergy Swelling Verified 07/12/23 04:28 Review of Systems ROS Statement: Those systems with pertinent positive or pertinent negative responses have been documented in the HPI. Review of Systems: CONST: Denies fever EYES: Denies blurry vision ENT: Endorses nasal congestion C/V: Denies Chest pain RESP: Denies shortness of breath GI: Denies abdominal pain : Denies dysuria SKIN: Denies rash. MSK: Denies joint pain. NEURO: Denies headache ROS Other: All systems not noted in ROS Statement are negative. Past Medical History Past Medical History: No Reported History Additional Past Medical History / Comment(s): seasonal allergies, ED medication , History of Any Multi-Drug Resistant Organisms: MRSA Date of last positivie culture/infection: 04/02/19 MDRO Source:: Toe, right First Past Surgical History: Adenoidectomy, Ear Surgery, Hernia Repair, Orthopedic Surgery Additional Past Surgical History / Comment(s): R wrist Past Psychological History: No Psychological Hx Reported Smoking Status: Never smoker Past Alcohol Use History: Occasional Past Drug Use History: None Reported General Exam - General Exam Comments Initial Comments: General: Appears in no acute distress. HEAD: Normal with no signs of head trauma. EYES: PERRLA, EOMI, conjunctiva normal, no discharge. ENT: Hearing grossly intact, normal oropharynx. RESPIRATORY: Coarse breath sounds in the right lung. No significant hypoxia with pulse ox mid 90%'s. C/V: Regular rate and rhythm. S1 and S2 auscultated, no edema, peripheral pulses 2+ and intact throughout ABD: Abd is soft, nontender, nondistended EXT: Normal range of motion, no obvious deformity SKIN: No rashes or lesions observed on exposed skin. NEURO: Alert and oriented x 4. Limitations: no limitations Course Vital Signs 07/12/23 07/12/23 04:25 06:40 Temperature 98.9 F Pulse Rate 103 H 103 H Respiratory 20 20 Rate Blood Pressure 123/77 118/75 O2 Sat by Pulse 93 L 96 Oximetry Medical Decision Making - Medical Decision Making Was pt. sent in by a medical professional or institution (RADHA Menon, MICROFILM DUPLICATING UNIT SUPERVISOR, urgent care, hospital, or senior living...) When possible be specific @ -No Did you speak to anyone other than the patient for history (EMS, parent, family, police, friend...)? What history was obtained from this source @ -No Did you review nursing and triage notes (agree or disagree)? Why? @ -I reviewed and agree with nursing and triage notes Were old charts reviewed (outside hosp., previous admission, EMS record, old EKG, old radiological studies, urgent care reports/EKG's, senior living records)? Report findings @ -No old charts were reviewed Differential Diagnosis (chest pain, altered mental status, abdominal pain women, abdominal pain men, vaginal bleeding, weakness, fever, dyspnea, syncope, headache, dizziness, GI bleed, back pain, seizure, CVA, palpatations, mental health, musculoskeletal)? @ -Covid, pneumonia, influenza, this list is not all inclusive. EKG interpreted by me (3pts min.). @ -None done X-rays interpreted by me (1pt min.). @ -Chest x-ray reveals a right-sided consolidation in the inferior right upper lobe. CT interpreted by me (1pt min.). @ -None done U/S interpreted by me (1pt. min.). @ -None done What testing was considered but not performed or refused? (CT, X-rays, U/S, labs)? Why? @ -None What meds were considered but not given or refused? Why? @ -None Did you discuss the management of the patient with other professionals (professionals i.e. , PA, MICROFILM DUPLICATING UNIT SUPERVISOR, lab, RT, psych nurse, social media project manager, community health navigator, teacher, benefits officer, director of casework)? Give summary @ -No Was smoking cessation discussed for >3mins.? @ -No Was critical care preformed (if so, how long)? @ -No Were there social determinants of health that impacted care today? How? (Homelessness, low income, unemployed, alcoholism, drug addiction, transportation, low edu. Level, literacy, decrease access to med. care, longterm, rehab)? @ -No Was there de-escalation of care discussed even if they declined (Discuss DNR or withdrawal of care, Hospice)? DNR status @ -No What co-morbidities impacted this encounter? (DM, HTN, Smoking, COPD, CAD, Cancer, CVA, ARF, Chemo, Hep., AIDS, mental health diagnosis, sleep apnea, morbid obesity)? @ -None Was patient admitted / discharged? Hospital course, mention meds given and route, prescriptions, significant lab abnormalities, going to OR and other pertinent info. @ -Patient presents with upper respiratory symptoms. Vital signs within acceptable limits. We will obtain basic labs, chest x-ray, viral swabs. Patient was in agreement this plan. He was on antibiotics but has been off of them for over one week. Currently also has a drug rash likely from the amoxicil cindi that is unchanged from last week. Chest x-ray shows a right-sided pneumonia. Labs are all within acceptable limits. Negative viral swabs. On reevaluation, I did discuss with him the findings. He'll be started on antibiotics. He was in agreement this plan. Strict return precautions discuss ed. I will provide the patient with a prescription for Levaquin. I instructed the patient to follow up with their PCP in the next 1-3 days. I explained that the patient should return to the emergency department if they experience any worsening symptoms. Strict return precautions were discussed with the patient. The patient expressed understanding of these instructions. I answered all questions that the patient had. The patient was discharged home in good condition with their prescriptions and follow up information. Undiagnosed new problem with uncertain prognosis? @ -No Drug Therapy requiring intensive monitoring for toxicity (Heparin, Nitro, Insulin, Cardizem)? @ -No Were any procedures done? @ -No Diagnosis/symptom? @ -Pneumonia Acute, or Chronic, or Acute on Chronic? @ -Acute Uncomplicated (without systemic symptoms) or Complicated (systemic symptoms)? @ -Complicated Side effects of treatment? @ -No Exacerbation, Progression, or Severe Exacerbation? @ -No. Poses a threat to life or bodily function? How? (Chest pain, [place], [place], pneumonia, PE, COPD, DKA, ARF, appy, cholecystitis, CVA, Diverticulitis, Homicidal, Suicidal, threat to staff... and all critical care pts) @ -Unlikely - Lab Data Result diagrams: 07/12/23 04:43 07/12/23 04:43 Lab Results 07/12/23 07/12/23 07/12/23 Range/Units 04:43 04:43 04:43 WBC 7.5 (3.8-10.6) k/uL RBC 4.88 (4.30-5.90) m/uL Hgb 14.8 (13.0-17.5) gm/dL Hct 43.5 (39.0-53.0) % MCV 89.0 (80.0-100.0) fL MCH 30.4 (25.0-35.0) pg MCHC 34.1 (31.0-37.0) g/dL RDW 12.6 (11.5-15.5) % Plt Count 296 (150-450) k/uL MPV 7.4 Neutrophils % 78 % Lymphocytes % 12 % Monocytes % 5 % Eosinophils % 2 % Basophils % 0 % Neutrophils # 5.8 (1.3-7.7) k/uL Lymphocytes # 0.9 L (1.0-4.8) k/uL Monocytes # 0.4 (0-1.0) k/uL Eosinophils # 0.2 (0-0.7) k/uL Basophils # 0.0 (0-0.2) k/uL Sodium 138 (137-145) mmol/L Potassium 4.3 (3.5-5.1) mmol/L Chloride 102 (98-107) mmol/L Carbon Dioxide 29 (22-30) mmol/L Anion Gap 7 mmol/L BUN 17 (9-20) mg/dL Creatinine 1.05 (0.66-1.25) mg/dL Est GFR (CKD-EPI)AfAm >90 (>60 ml/min/1.73 sqM) Est GFR (CKD-EPI)NonAf >90 (>60 ml/min/1.73 sqM) Glucose 102 H (74-99) mg/dL Calcium 9.0 (8.4-10.2) mg/dL Total Bilirubin 0.8 (0.2-1.3) mg/dL AST 31 (17-59) U/L ALT 25 (4-49) U/L Alkaline Phosphatase 77 (38-126) U/L Total Protein 7.3 (6.3-8.2) g/dL Albumin 4.3 (3.5-5.0) g/dL Influenza Type A (PCR) Not Detected (Not Detectd) Influenza Type B (PCR) Not Detected (Not Detectd) RSV (PCR) Not Detected (Not Detectd) SARS-CoV-2 (PCR) Not Detected (Not Detectd) Disposition Clinical Impression: Pneumonia Disposition: HOME SELF-CARE Condition: Good Instructions (If sedation given, give patient instructions): Bacterial Pneumonia (ED) Prescriptions: Levofloxacin [Levaquin] 500 mg PO DAILY 10 Days #10 tab Is patient prescribed a controlled substance at d/c from ED?: No Referrals: Teresa Fatima [Primary Care Provider] - 1-2 days Time of Disposition: 06:45
[2023-07-12 07:05] VITALS: BP 118/75
[2023-07-12] MEDS ORDERED: DEXAMETHASONE SOD PHOSPHATE 10 MG/ML 1 ML VIAL IVP SCH (09:00)
== END 2023-07-12 07:07 | disposition home or self-care (01) ==
LOC: EC 04:11
DX: J18.9 Pneumonia, unspecified organism (principal); Z20.822 Contact with and (suspected) exposure to COVID-19; Z91.09 Other allergy status, other than to drugs and biological substances
CPT/HCPCS: 36415; 80053; 85025; 87636; 71046; 99283; 96374; J1100

== ENCOUNTER 2023-07-13 15:13 | Emergency (ER) | payer MEDICAID ==
[2023-07-13 15:24] VITALS: TEMP 98.8
[2023-07-13 15:58] LABS: ALT 28 U/L (4-49); AST 31 U/L (17-59); African American GFR (CKD) >90 (>60 ml/min/1.73 sqM); Albumin 4.2 g/dL (3.5-5.0); Alkaline Phosphatase 78 U/L (38-126); Anion Gap 9 mmol/L; Blood Urea Nitrogen 23 mg/dL (9-20); Calcium 9.1 mg/dL (8.4-10.2); Carbon Dioxide 26 mmol/L (22-30); Chloride 105 mmol/L (98-107); Glucose 100 mg/dL (74-99); Non-African American GFR(CKD) >90 (>60 ml/min/1.73 sqM); Potassium 3.8 mmol/L (3.5-5.1); Sodium 140 mmol/L (137-145); Total Bilirubin 0.5 mg/dL (0.2-1.3); Total Protein 7.4 g/dL (6.3-8.2)
[2023-07-13 19:30] LABS: Basophils % (A) 1 %; Eosinophils # (A) 0.3 k/uL (0-0.7); Eosinophils % (A) 4 %; HCT 46.5 % (39.0-53.0); HGB 15.3 gm/dL (13.0-17.5); Lymphocytes # (A) 1.4 k/uL (1.0-4.8); Lymphocytes % (A) 19 %; MCH 29.5 pg (25.0-35.0); MCV 89.5 fL (80.0-100.0); Mean Platelet Volume 7.4; Monocytes # (A) 0.4 k/uL (0-1.0); Monocytes % (A) 5 %; Neutrophils # (A) 5.3 k/uL (1.3-7.7); Neutrophils % (A) 70 %; Platelet Count 331 k/uL (150-450); RBC 5.19 m/uL (4.30-5.90); RDW 12.6 % (11.5-15.5); WBC 7.6 k/uL (3.8-10.6)
--- NOTE | 2023-07-13 20:42 | ED ---
General Adult HPI - General Chief complaint: Skin/Abscess/Foreign Body Stated complaint: Hives, Pnuemonia+ Time Seen by Provider: 07/13/23 20:09 Source: patient Mode of arrival: ambulatory Limitations: no limitations - History of Present Illness Initial comments: 37-year-old male presenting to the ED with chief complaint of rash. Patient initially seen here approximately a week and a half ago due to upper respiratory symptoms. Was prescribed amoxicillin which patient noted he finished. Shortly after taking amoxicillin noted that the rash started to appear all across his body. Rash is not itchy or painful. Seen here again by myself. At this time amoxicillin was discontinued and I advised taking Benadryl as needed if the rash does itch. New allergens. Per patient, rash has worsened noting that it has spread more across his body. Reports that it still does not itch and it still is not painful. No new symptoms. No fever. Per at bedside. Patient acting appropriately. Patient is currently on antibiotics due to a pneumonia which is currently being treated. Reports improvement of cough. No other complaints. - Related Data Home Medications Medication Instructions Recorded Confirmed Loratadine 10 mg PO DAILY 03/09/20 03/09/20 Previous Rx's Medication Instructions Recorded Benzonatate [Tessalon Perles] 200 mg PO TID #15 cap 03/22/21 Amoxic-Pot Clav 875-125Mg 1 tab PO Q12HR 10 Days #20 tab 06/27/23 [Augmentin 875-125] Ibuprofen [Motrin] 600 mg PO Q8HR PRN #24 tab 06/27/23 Benzonatate [Tessalon Perle] 200 mg PO TID PRN #15 capsule 07/05/23 Ondansetron Odt [Zofran Odt] 4 mg PO Q8HR PRN #20 tab 07/05/23 Levofloxacin [Levaquin] 500 mg PO DAILY 10 Days #10 tab 07/12/23 Allergies Allergy/AdvReac Type Severity Reaction Status Date / Time cat dander Allergy Swelling Verified 07/12/23 04:28 Review of Systems ROS Statement: Those systems with pertinent positive or pertinent negative responses have been documented in the HPI. ROS Other: All systems not noted in ROS Statement are negative. Past Medical History Past Medical History: No Reported History Additional Past Medical History / Comment(s): seasonal allergies, ED medication , History of Any Multi-Drug Resistant Organisms: MRSA Date of last positivie culture/infection: 04/02/19 MDRO Source:: Toe, right First Past Surgical History: Adenoidectomy, Ear Surgery, Hernia Repair, Orthopedic Surgery Additional Past Surgical History / Comment(s): R wrist Past Psychological History: No Psychological Hx Reported Smoking Status: Never smoker Past Alcohol Use History: Occasional Past Drug Use History: None Reported General Exam Limitations: no limitations General appearance: alert, in no apparent distress Eye exam: Present: normal appearance Neck exam: Present: normal inspection Respiratory exam: Present: normal lung sounds bilaterally Cardiovascular Exam: Present: regular rate, normal rhythm GI/Abdominal exam: Present: soft (Generalized flat petechial/purpuric rash) Skin exam: Present: warm, dry, rash (Gerneralized pupuric/petechial rash) Course Vital Signs 07/13/23 15:17 Temperature 98.8 F Pulse Rate 82 Respiratory 16 Rate Blood Pressure 125/84 O2 Sat by Pulse 94 L Oximetry Medical Decision Making - Medical Decision Making Was pt. sent in by a medical professional or institution (RADHA Menon, MACHINE CLOTH MEASURER, urgent care, hospital, or group home...) When possible be specific @ -No Did you speak to anyone other than the patient for history (EMS, parent, family, police, friend...)? What history was obtained from this source @ -Yes spoke to patient's . For further details please see HPI. Did you review nursing and triage notes (agree or disagree)? Why? @ -I reviewed and agree with nursing and triage notes Were old charts reviewed (outside hosp., previous admission, EMS record, old EKG, old radiological studies, urgent care reports/EKG's, group home records)? Report findings @ -Reviewed [rior charts. For further details please see HPI. Differential Diagnosis (chest pain, altered mental status, abdominal pain women, abdominal pain men, vaginal bleeding, weakness, fever, dyspnea, syncope, headache, dizziness, GI bleed, back pain, seizure, CVA, palpatations, mental health, musculoskeletal)? @ -SJS, TEN, pemphigus vulgaris, scaled skin syndrome, cellulitis. Not meant to be an all-inclusive list. EKG interpreted by me (3pts min.). @ -As above X-rays interpreted by me (1pt min.). @ -None done CT interpreted by me (1pt min.). @ -None done U/S interpreted by me (1pt. min.). @ -None done What testing was considered but not performed or refused? (CT, X-rays, U/S, labs)? Why? @ -None What meds were considered but not given or refused? Why? @ -None Did you discuss the management of the patient with other professionals (professionals i.e. DrDemar, PA, MACHINE CLOTH MEASURER, lab, RT, psych nurse, psychotherapist social worker, ammunition components inspector, teacher, emergency response officer, family preservation caseworker)? Give summary @ -No Was smoking cessation discussed for >3mins.? @ -No Was critical care preformed (if so, how long)? @ -No Were there social determinants of health that impacted care today? How? (Homelessness, low income, unemployed, alcoholism, drug addiction, transportation, low edu. Level, literacy, decrease access to med. care, retirement, rehab)? @ -No Was there de-escalation of care discussed even if they declined (Discuss DNR or withdrawal of care, Hospice)? DNR status @ -No What co-morbidities impacted this encounter? (DM, HTN, Smoking, COPD, CAD, Cancer, CVA, ARF, Chemo, Hep., AIDS, mental health diagnosis, sleep apnea, morbid obesity)? @ -None Was patient admitted / discharged? Hospital course, mention meds given and route, prescriptions, significant lab abnormalities, going to OR and other pertinent info. @ -Discharge 37-year-old male presenting to the ED with complaints of continued rash. Rash does not itch and is not painful. Rash appears to be generalized across the patient's entire body. EC obtained and is unremarkable. Shows no evidence of anemia or thrombocytopenia. Signs are stable afebrile. Discharged home in stable condition. Advised follow-up with PCP/dermatology. Discussed return precautions with patient who verbalized agreement. Undiagnosed new problem with uncertain prognosis? @ -No Drug Therapy requiring intensive monitoring for toxicity (Heparin, Nitro, Insulin, Cardizem)? @ -No Were any procedures done? @ -No Diagnosis/symptom? @ -Rash Acute, or Chronic, or Acute on Chronic? @ -Acute Uncomplicated (without systemic symptoms) or Complicated (systemic symptoms)? @ -Uncomplicated Side effects of treatment? @ -No Exacerbation, Progression, or Severe Exacerbation? @ -No Poses a threat to life or bodily function? How? (Chest pain, [place], [place], pneumonia, PE, COPD, DKA, ARF, appy, cholecystitis, CVA, Diverticulitis, Homicidal, Suicidal, threat to staff... and all critical care pts) @ -No - Lab Data Result diagrams: 07/13/23 15:28 07/13/23 15:28 Lab Results 07/13/23 07/13/23 07/13/23 Range/Units 15:23 15:28 15:28 WBC 7.6 (3.8-10.6) k/uL RBC 5.19 (4.30-5.90) m/uL Hgb 15.3 (13.0-17.5) gm/dL Hct 46.5 (39.0-53.0) % MCV 89.5 (80.0-100.0) fL MCH 29.5 (25.0-35.0) pg MCHC 33.0 (31.0-37.0) g/dL RDW 12.6 (11.5-15.5) % Plt Count 331 (150-450) k/uL MPV 7.4 Neutrophils % 70 % Lymphocytes % 19 % Monocytes % 5 % Eosinophils % 4 % Basophils % 1 % Neutrophils # 5.3 (1.3-7.7) k/uL Lymphocytes # 1.4 (1.0-4.8) k/uL Monocytes # 0.4 (0-1.0) k/uL Eosinophils # 0.3 (0-0.7) k/uL Basophils # 0.0 (0-0.2) k/uL Sodium (137-145) mmol/L Potassium (3.5-5.1) mmol/L Chloride (98-107) mmol/L Carbon Dioxide (22-30) mmol/L Anion Gap mmol/L BUN (9-20) mg/dL Creatinine (0.66-1.25) mg/dL Est GFR (CKD-EPI)AfAm (>60 ml/min/1.73 sqM) Est GFR (CKD-EPI)NonAf (>60 ml/min/1.73 sqM) Glucose (74-99) mg/dL Calcium (8.4-10.2) mg/dL Total Bilirubin (0.2-1.3) mg/dL AST (17-59) U/L ALT (4-49) U/L Alkaline Phosphatase (38-126) U/L Total Protein (6.3-8.2) g/dL Albumin (3.5-5.0) g/dL Heterophile Antibody Negative (Negative) Influenza Type A (PCR) Not Detected (Not Detectd) Influenza Type B (PCR) Not Detected (Not Detectd) RSV (PCR) Not Detected (Not Detectd) SARS-CoV-2 (PCR) Not Detected (Not Detectd) 07/13/23 Range/Units 15:28 WBC (3.8-10.6) k/uL RBC (4.30-5.90) m/uL Hgb (13.0-17.5) gm/dL Hct (39.0-53.0) % MCV (80.0-100.0) fL MCH (25.0-35.0) pg MCHC (31.0-37.0) g/dL RDW (11.5-15.5) % Plt Count (150-450) k/uL MPV Neutrophils % % Lymphocytes % % Monocytes % % Eosinophils % % Basophils % % Neutrophils # (1.3-7.7) k/uL Lymphocytes # (1.0-4.8) k/uL Monocytes # (0-1.0) k/uL Eosinophils # (0-0.7) k/uL Basophils # (0-0.2) k/uL Sodium 140 (137-145) mmol/L Potassium 3.8 (3.5-5.1) mmol/L Chloride 105 (98-107) mmol/L Carbon Dioxide 26 (22-30) mmol/L Anion Gap 9 mmol/L BUN 23 H (9-20) mg/dL Creatinine 0.95 (0.66-1.25) mg/dL Est GFR (CKD-EPI)AfAm >90 (>60 ml/min/1.73 sqM) Est GFR (CKD-EPI)NonAf >90 (>60 ml/min/1.73 sqM) Glucose 100 H (74-99) mg/dL Calcium 9.1 (8.4-10.2) mg/dL Total Bilirubin 0.5 (0.2-1.3) mg/dL AST 31 (17-59) U/L ALT 28 (4-49) U/L Alkaline Phosphatase 78 (38-126) U/L Total Protein 7.4 (6.3-8.2) g/dL Albumin 4.2 (3.5-5.0) g/dL Heterophile Antibody (Negative) Influenza Type A (PCR) (Not Detectd) Influenza Type B (PCR) (Not Detectd) RSV (PCR) (Not Detectd) SARS-CoV-2 (PCR) (Not Detectd) Disposition Clinical Impression: Rash Disposition: HOME SELF-CARE Condition: Good Additional Instructions: Please return to the Emergency Department if symptoms worsen or any other concerns. Please follow up with your PCP/Dermatology. Is patient prescribed a controlled substance at d/c from ED?: No Referrals: Teresa Fatima [Primary Care Provider] - 1-2 days Time of Disposition: 20:47
[2023-07-13 21:26] VITALS: BP 121/74; PULSE 81; RESP 15
== END 2023-07-13 21:08 | disposition home or self-care (01) ==
LOC: EC 15:13
DX: R21 Rash and other nonspecific skin eruption (principal); Z20.822 Contact with and (suspected) exposure to COVID-19; Z91.09 Other allergy status, other than to drugs and biological substances
CPT/HCPCS: 36415; 80053; 85025; 86308; 87636; 99284

== ENCOUNTER 2023-12-26 18:57 | Emergency (ER) | payer MEDICAID ==
[2023-12-26 19:18] VITALS: RESP 18; TEMP 98.1
[2023-12-26 19:49] LABS: Basophils % (A) 0 %; Eosinophils # (A) 0.2 k/uL (0-0.7); Eosinophils % (A) 2 %; HCT 50.1 % (39.0-53.0); HGB 15.7 gm/dL (13.0-17.5); Lymphocytes # (A) 2.1 k/uL (1.0-4.8); Lymphocytes % (A) 23 %; MCH 29.1 pg (25.0-35.0); MCHC 31.4 g/dL (31.0-37.0); MCV 92.7 fL (80.0-100.0); Mean Platelet Volume 7.9; Monocytes # (A) 0.5 k/uL (0-1.0); Monocytes % (A) 6 %; Neutrophils # (A) 6.1 k/uL (1.3-7.7); Neutrophils % (A) 68 %; Platelet Count 254 k/uL (150-450); RDW 12.6 % (11.5-15.5); WBC 9.1 k/uL (3.8-10.6)
--- NOTE | 2023-12-26 19:55 | XR ---
EXAMINATION TYPE: XR chest 2V DATE OF EXAM: 12/26/2023 COMPARISON: 07/12/2023 HISTORY: Chest pain TECHNIQUE: Frontal and lateral views of the chest are obtained. FINDINGS: There is no focal air space opacity, pleural effusion, or pneumothorax seen. The cardiac silhouette size is within normal limits. The osseous structures are intact. IMPRESSION: No acute cardiopulmonary process.
[2023-12-26 20:02] LABS: Partial Thromboplastin Time 29.4 sec (22.0-30.0); Prothrombin Time 10.9 sec (10.0-12.5)
[2023-12-26 20:04] LABS: ALT 27 U/L (4-49); AST 23 U/L (17-59); African American GFR (CKD) >90 (>60 ml/min/1.73 sqM); Albumin 4.7 g/dL (3.5-5.0); Alkaline Phosphatase 76 U/L (38-126); Anion Gap 9 mmol/L; Blood Urea Nitrogen 23 mg/dL (9-20); Calcium 9.2 mg/dL (8.4-10.2); Carbon Dioxide 27 mmol/L (22-30); Chloride 106 mmol/L (98-107); Glucose 90 mg/dL (74-99); Magnesium 2.1 mg/dL (1.6-2.3); Non-African American GFR(CKD) >90 (>60 ml/min/1.73 sqM); Potassium 4.2 mmol/L (3.5-5.1); Sodium 142 mmol/L (137-145); Total Bilirubin 0.7 mg/dL (0.2-1.3); Total Protein 7.2 g/dL (6.3-8.2)
--- NOTE | 2023-12-26 20:48 | ED ---
Chest Pain HPI - General Chief Complaint: Chest Pain Stated Complaint: Chest pain,Heart palp. Time Seen by Provider: 12/26/23 20:04 Source: patient, RN notes reviewed Mode of arrival: ambulatory Limitations: no limitations - History of Present Illness Initial Comments: 38-year-old male presenting to the ED with a chief complaint of palpitations. Reports history of palpitations and follows with Dr. Monson of cardiology. States he was suggested in the future if episodes recurring and becoming more frequent may need cardiac ablation. States today was playing videogames when all of a sudden felt his heart racing. He checked his [employer] watch and reported rate of 161 bpm up to 180s. No chest pain at this time. No shortness of breath at this time. States episode lasted 5 to 7 minutes and has since resolved. Currently has no complaints. - Related Data Home Medications Medication Instructions Recorded Confirmed Loratadine 10 mg PO DAILY 03/09/20 03/09/20 Previous Rx's Medication Instructions Recorded Benzonatate [Tessalon Perles] 200 mg PO TID #15 cap 03/22/21 Amoxic-Pot Clav 875-125Mg 1 tab PO Q12HR 10 Days #20 tab 06/27/23 [Augmentin 875-125] Ibuprofen [Motrin] 600 mg PO Q8HR PRN #24 tab 06/27/23 Benzonatate [Tessalon Perle] 200 mg PO TID PRN #15 capsule 07/05/23 Ondansetron Odt [Zofran Odt] 4 mg PO Q8HR PRN #20 tab 07/05/23 Levofloxacin [Levaquin] 500 mg PO DAILY 10 Days #10 tab 07/12/23 Allergies Allergy/AdvReac Type Severity Reaction Status Date / Time cat dander Allergy Swelling Verified 12/26/23 19:18 Review of Systems ROS Statement: Those systems with pertinent positive or pertinent negative responses have been documented in the HPI. ROS Other: All systems not noted in ROS Statement are negative. Past Medical History Past Medical History: No Reported History Additional Past Medical History / Comment(s): seasonal allergies, ED medication , History of Any Multi-Drug Resistant Organisms: MRSA Date of last positivie culture/infection: 04/02/19 MDRO Source:: Toe, right First Past Surgical History: Adenoidectomy, Ear Surgery, Hernia Repair, Orthopedic Surgery Additional Past Surgical History / Comment(s): R wrist Past Psychological History: No Psychological Hx Reported Smoking Status: Never smoker Past Alcohol Use History: Occasional Past Drug Use History: None Reported General Exam Limitations: no limitations General appearance: alert, in no apparent distress Eye exam: Present: normal appearance Neck exam: Present: normal inspection Respiratory exam: Present: normal lung sounds bilaterally Cardiovascular Exam: Present: regular rate GI/Abdominal exam: Present: soft, normal bowel sounds. Absent: distended, tenderness, guarding, rebound, rigid Neurological exam: Present: alert, oriented X3 Skin exam: Present: warm, dry Course Vital Signs 12/26/23 19:15 Temperature 98.1 F Pulse Rate 89 Respiratory 18 Rate Blood Pressure 135/81 O2 Sat by Pulse 96 Oximetry Chest Pain MDM - MDM Was pt. sent in by a medical professional or institution (Dr. PA, TRAFFIC REPRESENTATIVE, urgent care, hospital, or shelter...) When possible be specific @ -No Did you speak to anyone other than the patient for history (EMS, parent, family, police, friend...)? What history was obtained from this source @ -No Did you review nursing and triage notes (agree or disagree)? Why? @ -I reviewed and agree with nursing and triage notes Were old charts reviewed (outside hosp., previous admission, EMS record, old EKG, old radiological studies, urgent care reports/EKG's, shelter records)? Report findings @ -No old charts were reviewed Differential Diagnosis (chest pain, altered mental status, abdominal pain women, abdominal pain men, vaginal bleeding, weakness, fever, dyspnea, syncope, headache, dizziness, GI bleed, back pain, seizure, CVA, palpatations, mental health, musculoskeletal)? @ -Differential Palpitations Ventricular arrhythmias, atrial arrhythmias, myocardial infarction, anemia, thyrotoxicosis, electrolyte imbalance, hypokalemia, pulmonary embolism, pulmonary disease, drugs, alcohol, anxiety, stress.... This is not meant to be an all-inclusive list. EKG interpreted by me (3pts min.). @ -EKG interpreted me showing a sinus rhythm without acute ST or T wave changes at a rate of 88 bpm. KS 156, QRS 112, QT/QTc 367/413. X-rays interpreted by me (1pt min.). @ -Chest x-ray interpreted me which revealed no evidence of acute finding. CT interpreted by me (1pt min.). @ -None done U/S interpreted by me (1pt. min.). @ -None done What testing was considered but not performed or refused? (CT, X-rays, U/S, labs)? Why? @ -None What meds were considered but not given or refused? Why? @ -None Did you discuss the management of the patient with other professionals (professionals i.e. Dr., PA, TRAFFIC REPRESENTATIVE, lab, RT, psych nurse, psych social worker, proof carrier, teacher, telecommunications officer, counter caser)? Give summary @ -No Was smoking cessation discussed for >3mins.? @ -No Was critical care preformed (if so, how long)? @ -No Were there social determinants of health that impacted care today? How? (Homelessness, low income, unemployed, alcoholism, drug addiction, transportation, low edu. Level, literacy, decrease access to med. care, shelter, rehab)? @ -No Was there de-escalation of care discussed even if they declined (Discuss DNR or withdrawal of care, Hospice)? DNR status @ -No What co-morbidities impacted this encounter? (DM, HTN, Smoking, COPD, CAD, Cancer, CVA, ARF, Chemo, Hep., AIDS, mental health diagnosis, sleep apnea, morbid obesity)? @ -None Was patient admitted / discharged? Hospital course, mention meds given and route, prescriptions, significant lab abnormalities, going to OR and other pert inent info. @ -Discharge 38-year-old male with a known history of palpitations and follows with Dr. Monson of cardiology presenting to the ED with an episode of palpitations which seem to last longer than usual. No chest pain or shortness of breath. At this time symptoms completely resolved. Laboratory and imaging studies reviewed which revealed no evidence of acute finding. 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 Discussed return precautions with patient and who verbalized agreement. Undiagnosed new problem with uncertain prognosis? @ -No Drug Therapy requiring intensive monitoring for toxicity (Heparin, Nitro, Insulin, Cardizem)? @ -No Were any procedures done? @ -No Diagnosis/symptom? @ -Palpitations Acute, or Chronic, or Acute on Chronic? @ -Acute Uncomplicated (without systemic symptoms) or Complicated (systemic symptoms)? @ -Complicated Side effects of treatment? @ -No Exacerbation, Progression, or Severe Exacerbation? @ -No Poses a threat to life or bodily function? How? (Chest pain, [place], [place], pneumonia, PE, COPD, DKA, ARF, appy, cholecystitis, CVA, Diverticulitis, Homicidal, Suicidal, threat to staff... and all critical care pts) @ -Unlikely at this time Disposition Clinical Impression: Palpitations Disposition: HOME SELF-CARE Condition: Good Instructions (If sedation given, give patient instructions): Heart Palpitations (ED) Additional Instructions: Please return to the Emergency Department if symptoms worsen or any other concerns. Please follow-up with your merchandising team lead. Is patient prescribed a controlled substance at d/c from ED?: No Referrals: Teresa Fatima [Primary Care Provider] - 1-2 days Time of Disposition: 20:45
[2023-12-26 21:22] VITALS: BP 120/89; PULSE 88
== END 2023-12-26 21:22 | disposition home or self-care (01) ==
LOC: EC 18:57
DX: R00.2 Palpitations (principal); Z91.048 Other nonmedicinal substance allergy status
CPT/HCPCS: 36415; 71046; 80053; 83735; 84484; 85025; 85610; 85730; 93005; 99285

== ENCOUNTER → 2024-08-11 | Outpatient (CLI) | payer MEDICAID ==
[2024-08-11 13:15] LABS: Basophils # (A) 0.02 X 10*3/uL (0.00-0.10); Basophils % (A) 0.3 %; Eosinophils # (A) 0.26 X 10*3/uL (0.04-0.35); Eosinophils % (A) 4.2 %; HCT 48.2 % (39.6-50.0); HGB 15.4 g/dL (13.0-17.0); Lymphocytes % (A) 25.8 %; MCH 28.9 pg (27.0-32.0); MCV 90.6 FL (80.0-97.0); Mean Platelet Volume 10.6 FL (9.5-12.2); Monocytes # (A) 0.36 X 10*3/uL (0.20-1.00); Monocytes % (A) 5.8 %; NRBC Per 100 WBC 0 X 10*3/uL (0.00-0.01); Neutrophils # (A) 3.93 X 10*3/uL (1.80-7.70); Neutrophils % (A) 63.6 %; Platelet Count 259 X 10*3/uL (140-440); RBC 5.32 X 10*6/uL (4.40-5.60); RDW 12.5 % (11.5-14.5); WBC 6.19 X 10*3/uL (4.50-10.00)
== END | disposition home or self-care (01) ==
LOC: LABWHC1 08:49
PROVIDERS: ATTEND Family Medicine
DX: E29.1 Testicular hypofunction (principal)
CPT/HCPCS: 36415; 84153; 84402; 84403; 85025

== ENCOUNTER 2024-09-27 14:25 | Emergency (ER) | payer MEDICAID ==
[2024-09-27] MEDS: TOPICAL SKIN ADHESIVE 1 EACH AMP TOPICAL ONE (15:06)
--- NOTE | 2024-09-27 15:07 | ED ---
General Adult HPI - General Chief complaint: Wound/Laceration Stated complaint: Head Lac. Time Seen by Provider: 09/27/24 14:44 Source: patient, RN notes reviewed Mode of arrival: ambulatory Limitations: no limitations - History of Present Illness Initial comments: 39-year-old male presents to the emergency department for evaluation of laceration on his scalp. Patient states that he was working on a car and hit his head on the millan of the car. He notes that he was wearing a hat and he was cut through the hat. He denies loss of consciousness. Denies blood thinners. Denies any other injury. He reports having a tetanus vaccine within the past year. - Related Data Home Medications Medication Instructions Recorded Confirmed Loratadine 10 mg PO DAILY 03/09/20 03/09/20 Previous Rx's Medication Instructions Recorded Benzonatate [Tessalon Perles] 200 mg PO TID #15 cap 03/22/21 Amoxic-Pot Clav 875-125Mg 1 tab PO Q12HR 10 Days #20 tab 06/27/23 [Augmentin 875-125] Ibuprofen [Motrin] 600 mg PO Q8HR PRN #24 tab 06/27/23 Benzonatate [Tessalon Perle] 200 mg PO TID PRN #15 capsule 07/05/23 Ondansetron Odt [Zofran Odt] 4 mg PO Q8HR PRN #20 tab 07/05/23 Levofloxacin [Levaquin] 500 mg PO DAILY 10 Days #10 tab 07/12/23 Allergies Allergy/AdvReac Type Severity Reaction Status Date / Time No Known Allergies Allergy Verified 09/27/24 14:29 Review of Systems ROS Statement: Those systems with pertinent positive or pertinent negative responses have been documented in the HPI. ROS Other: All systems not noted in ROS Statement are negative. Past Medical History Past Medical History: No Reported History Additional Past Medical History / Comment(s): seasonal allergies, ED medication , History of Any Multi-Drug Resistant Organisms: MRSA Date of last positivie culture/infection: 04/02/19 MDRO Source:: Toe, right First Past Surgical History: Adenoidectomy, Ear Surgery, Hernia Repair, Orthopedic Surgery Additional Past Surgical History / Comment(s): R wrist Past Psychological History: No Psychological Hx Reported Smoking Status: Never smoker Past Alcohol Use History: Occasional Past Drug Use History: None Reported General Exam Limitations: no limitations General appearance: alert, in no apparent distress Head exam: Present: other (0.75cm laceration to the scalp) Eye exam: Present: normal appearance, PERRL, EOMI. Absent: scleral icterus, conjunctival injection, periorbital swelling ENT exam: Present: normal exam, mucous membranes moist Neck exam: Present: normal inspection. Absent: tenderness, meningismus, lymphadenopathy Respiratory exam: Present: normal lung sounds bilaterally. Absent: respiratory distress, wheezes, rales, rhonchi, stridor Cardiovascular Exam: Present: regular rate, normal rhythm, normal heart sounds. Absent: systolic murmur, diastolic murmur, rubs, gallop, clicks Extremities exam: Present: normal inspection, full ROM, normal capillary refill. Absent: tenderness, pedal edema, joint swelling, calf tenderness Neurological exam: Present: alert, oriented X3, CN II-XII intact Psychiatric exam: Present: normal affect, normal mood Skin exam: Present: warm, dry. Absent: intact (See above) Course Vital Signs 09/27/24 09/27/24 14:27 16:19 Temperature 98.3 F 98.1 F Pulse Rate 72 59 L Respiratory 18 20 Rate Blood Pressure 139/91 125/81 O2 Sat by Pulse 99 99 Oximetry Medical Decision Making - Medical Decision Making Was pt. sent in by a medical professional or institution (RADHA Menon, TUNNELLER, urgent c are, hospital, or residential...) When possible be specific @ -No Did you speak to anyone other than the patient for history (EMS, parent, family, police, friend...)? What history was obtained from this source @ -No Did you review nursing and triage notes (agree or disagree)? Why? @ -I reviewed and agree with nursing and triage notes Were old charts reviewed (outside hosp., previous admission, EMS record, old EKG, old radiological studies, urgent care reports/EKG's, residential records)? Report findings @ -No old charts were reviewed Differential Diagnosis (chest pain, altered mental status, abdominal pain women, abdominal pain men, vaginal bleeding, weakness, fever, dyspnea, syncope, headache, dizziness, GI bleed, back pain, seizure, CVA, palpatations, mental health, musculoskeletal)? @ -Laceration, abrasion, head injury, concussion, this list is not all inclusive EKG interpreted by me (3pts min.). @ -None X-rays interpreted by me (1pt min.). @ -None done CT interpreted by me (1pt min.). @ -None done U/S interpreted by me (1pt. min.). @ -None done What testing was considered but not performed or refused? (CT, X-rays, U/S, labs)? Why? @ -None What meds were considered but not given or refused? Why? @ -None Did you discuss the management of the patient with other professionals (professionals i.e. , PA, TUNNELLER, lab, RT, psych nurse, manager social services, binder and box builder, teacher, mounted police officer, case aide)? Give summary @ -No Was smoking cessation discussed for >3mins.? @ -No Was critical care preformed (if so, how long)? @ -No Were there social determinants of health that impacted care today? How? (Homelessness, low income, unemployed, alcoholism, drug addiction, transportation, low edu. Level, literacy, decrease access to med. care, shelter, rehab)? @ -No Was there de-escalation of care discussed even if they declined (Discuss DNR or withdrawal of care, Hospice)? DNR status @ -No What co-morbidities impacted this encounter? (DM, HTN, Smoking, COPD, CAD, Cancer, CVA, ARF, Chemo, Hep., AIDS, mental health diagnosis, sleep apnea, morbid obesity)? @ -None Was patient admitted / discharged? Hospital course, mention meds given and route, prescriptions, significant lab abnormalities, going to OR and other pertinent info. @ -Discharged. Patient presented the emergency department for evaluation of scalp laceration. The wound was cleaned with saline. Skin glue was applied. The patient up-to-date on tetanus vaccine. Patient advised on wound care. He will be discharged home. He is understanding and agreeable with this plan. Patient stable at time of discharge. Case discussed with Dr. Basilio Undiagnosed new problem with uncertain prognosis? @ -No Drug Therapy requiring intensive monitoring for toxicity (Heparin, Nitro, Insulin, Cardizem)? @ -No Were any procedures done? @ -No Diagnosis/symptom? @ -Laceration Acute, or Chronic, or Acute on Chronic? @ -Acute Uncomplicated (without systemic symptoms) or Complicated (systemic symptoms)? @ -Uncomplicated Side effects of treatment? @ -No Exacerbation, Progression, or Severe Exacerbation? @ -No Poses a threat to life or bodily function? How? (Chest pain, [place], [place], pneumonia, PE, COPD, DKA, ARF, appy, cholecystitis, CVA, Diverticulitis, Homicidal, Suicidal, threat to staff... and all critical care pts) @ -No Disposition Clinical Impression: Laceration Disposition: HOME SELF-CARE Condition: Stable Instructions (If sedation given, give patient instructions): Skin Adhesive Care (ED) Additional Instructions: Please keep wound clean and dry Be on the look out for signs of infection including redness, discharge, increased pain. Please follow-up with your primary care provider. Return to the emergency department for new or worsening symptoms. Is patient prescribed a controlled substance at d/c from ED?: No Referrals: Chrissie Dudley MD [Primary Care Provider] - 1-2 days
[2024-09-27 16:21] VITALS: BP 125/81; PULSE 59; RESP 20; TEMP 98.1
== END 2024-09-27 16:19 | disposition home or self-care (01) ==
LOC: EC 14:25
DX: S01.01XA Laceration without foreign body of scalp, initial encounter (principal); W22.8XXA Striking against or struck by other objects, initial encounter
CPT/HCPCS: 99282

== ENCOUNTER 2024-11-25 21:00 | Emergency (ER) | payer MEDICAID ==
[2024-11-25 21:21] VITALS: TEMP 98.5
--- NOTE | 2024-11-25 21:37 | ED ---
Chest Pain HPI - General Chief Complaint: Chest Pain Stated Complaint: Accelerated heart rate/Back pain Time Seen by Provider: 11/25/24 21:24 Source: patient Mode of arrival: ambulatory Limitations: no limitations - History of Present Illness Initial Comments: This patient is a 39-year-old man who presents to have evaluation after he developed elevated heart rate up to 100 bpm. The patient states that he had been driving home from a relatives house when he noticed that his heart was beating faster than his usual for him. He checked and it was 100 bpm. The patient states he felt like he might be having a little bit of anxiety but that the symptoms persisted longer than his usual for him. When he arrived home and the heart rate was still high he felt he should be seen here. Patient denies associated symptoms, no diaphoresis, dyspnea, nausea vomiting, or other symptoms. MD Complaint: other Onset/Timin -: hour(s) Onset: other (While driving) Pain Radiation: none Consistency: now resolved Improves With: nothing Worsens With: nothing Treatments Prior to Arrival: none - Related Data Home Medications Medication Instructions Recorded Confirmed Loratadine 10 mg PO DAILY 03/09/20 03/09/20 Previous Rx's Medication Instructions Recorded Benzonatate [Tessalon Perles] 200 mg PO TID #15 cap 03/22/21 Amoxic-Pot Clav 875-125Mg 1 tab PO Q12HR 10 Days #20 tab 06/27/23 [Augmentin 875-125] Ibuprofen [Motrin] 600 mg PO Q8HR PRN #24 tab 06/27/23 Benzonatate [Tessalon Perle] 200 mg PO TID PRN #15 capsule 07/05/23 Ondansetron Odt [Zofran Odt] 4 mg PO Q8HR PRN #20 tab 07/05/23 Levofloxacin [Levaquin] 500 mg PO DAILY 10 Days #10 tab 07/12/23 Allergies Allergy/AdvReac Type Severity Reaction Status Date / Time No Known Allergies Allergy Verified 11/25/24 21:21 Review of Systems ROS Statement: Those systems with pertinent positive or pertinent negative responses have been documented in the HPI. ROS Other: All systems not noted in ROS Statement are negative. Constitutional: Denies: fever, chills, weakness Respiratory: Denies: cough, dyspnea Cardiovascular: Reports: palpitations. Denies: orthopnea, edema, syncope Gastrointestinal: Denies: abdominal pain, nausea, vomiting Genitourinary: Denies: dysuria, hematuria Musculoskeletal: Denies: back pain Skin: Denies: rash Neurological: Denies: headache, weakness, numbness Psychiatric: Reports: anxiety EKG Findings - EKG Results: EKG: interpreted by KIRILL, sinus rhythm (Rate 87 bpm), normal axis, normal ST/T - Blocks, [place], Hypertrophy, ST Abn: AV and intraventricular conduction: right bundle branch block (fixed/intermittent, complete/incomplete) (Incomplete) Past Medical History Past Medical History: No Reported History Additional Past Medical History / Comment(s): seasonal allergies, ED medication , History of Any Multi-Drug Resistant Organisms: MRSA Date of last positivie culture/infection: 04/02/19 MDRO Source:: Toe, right First Past Surgical History: Adenoidectomy, Ear Surgery, Hernia Repair, Orthopedic Surgery Additional Past Surgical History / Comment(s): R wrist Past Psychological History: No Psychological Hx Reported Smoking Status: Never smoker Past Alcohol Use History: Occasional Past Drug Use History: None Reported General Exam Limitations: no limitations General appearance: alert, in no apparent distress Head exam: Present: atraumatic, normocephalic Eye exam: Present: normal appearance. Absent: scleral icterus, conjunctival injection Neck exam: Present: normal inspection Respiratory exam: Present: normal lung sounds bilaterally. Absent: respiratory distress, wheezes, rales, rhonchi, stridor, chest wall tenderness, accessory muscle use Cardiovascular Exam: Present: regular rate, normal rhythm, normal heart sounds. Absent: systolic murmur, diastolic murmur, rubs, gallop GI/Abdominal exam: Present: soft. Absent: distended, tenderness, guarding, rebound, rigid, mass Extremities exam: Present: normal inspection, normal capillary refill. Absent: pedal edema, calf tenderness Back exam: Present: normal inspection Neurological exam: Present: alert Skin exam: Present: warm, dry, intact, normal color. Absent: rash Course Vital Signs 11/25/24 11/25/24 21:17 22:44 Temperature 98.5 F Pulse Rate 99 75 Respiratory 18 17 Rate Blood Pressure 137/85 133/91 O2 Sat by Pulse 98 95 Oximetry Chest Pain MDM - MDM The patient had chest x-ray that I interpreted as negative for acute infiltrate, pneumothorax, congestive heart failure. Was pt. sent in by a medical professional or institution (RADHA Menon, SALES SERVICE REP, urgent care, hospital, or penitentiary...) When possible be specific @ -[No] Did you speak to anyone other than the patient for history (EMS, parent, family, police, friend...)? What history was obtained from this source @ -[No] Did you review nursing and triage notes (agree or disagree)? Why? @ -[I reviewed and agree with nursing and triage notes] Were old charts reviewed (outside hosp., previous admission, EMS record, old EKG, old radiological studies, urgent care reports/EKG's, penitentiary records)? Report findings @ -[No old charts were reviewed] Differential Diagnosis (chest pain, altered mental status, abdominal pain women, abdominal pain men, vaginal bleeding, weakness, fever, dyspnea, syncope, headache, dizziness, GI bleed, back pain, seizure, CVA, palpatations, mental health, musculoskeletal)? @ -[Differential Palpitations Ventricular arrhythmias, atrial arrhythmias, myocardial infarction, anemia, thyrotoxicosis, electrolyte imbalance, hypokalemia, pulmonary embolism, pulmonary disease, drugs, alcohol, anxiety, stress.... This is not meant to be an all-inclusive list. EKG interpreted by me (3pts min.). @ -[I interpreted as above] X-rays interpreted by me (1pt min.). @ -[I interpreted as above CT interpreted by me (1pt min.). @ -[None done] U/S interpreted by me (1pt. min.). @ -[None done] What testing was considered but not performed or refused? (CT, X-rays, U/S, labs)? Why? @ -[None] What meds were considered but not given or refused? Why? @ -[None] Did you discuss the management of the patient with other professionals (mayda viramontes i.e. RADHA Menon, SALES SERVICE REP, lab, RT, psych nurse, hospice social worker, wired music operator, teacher, deputy juvenile officer, mental health case manager)? Give summary @ -[No] Was smoking cessation discussed for >3mins.? @ -[No] Was critical care preformed (if so, how long)? @ -[No] Were there social determinants of health that impacted care today? How? (Homelessness, low income, unemployed, alcoholism, drug addiction, transportation, low edu. Level, literacy, decrease access to med. care, alf, rehab)? @ -[No] Was there de-escalation of care discussed even if they declined (Discuss DNR or withdrawal of care, Hospice)? DNR status @ -[No] What co-morbidities impacted this encounter? (DM, HTN, Smoking, COPD, CAD, Cancer, CVA, ARF, Chemo, Hep., AIDS, mental health diagnosis, sleep apnea, morbid obesity)? @ -[None] Was patient admitted / discharged? Hospital course, mention meds given and route, prescriptions, significant lab abnormalities, going to OR and other pertinent info. @ -[Patient is 39-year-old man here to have evaluation for palpitations. The episode has resolved. The patient is EKG is sinus rhythm. Workup is unremarkable. Patient stable to follow-up with cardiology as outpatient for Holter monitoring or other workup. Undiagnosed new problem with uncertain prognosis? @ -[No] Drug Therapy requiring intensive monitoring for toxicity (Heparin, Nitro, Insulin, Cardizem)? @ -[No] Were any procedures done? @ -[No] Diagnosis/symptom? @ -[Acute palpitations Acute, or Chronic, or Acute on Chronic? @ -[Acute Uncomplicated (without systemic symptoms) or Complicated (systemic symptoms)? @ -[Uncomplicated Side effects of treatment? @ -[No] Exacerbation, Progression, or Severe Exacerbation? @ -[No] Poses a threat to life or bodily function? How? (Chest pain, [place], [place], pneumonia, PE, COPD, DKA, ARF, appy, cholecystitis, CVA, Diverticulitis, Homicidal, Suicidal, threat to staff... and all critical care pts) @ -[No] All treatments are based on ideal body weight as in ED triage Disposition Clinical Impression: Palpitations Disposition: HOME SELF-CARE Condition: Good Instructions (If sedation given, give patient instructions): Heart Palpitations (DC) Is patient prescribed a controlled substance at d/c from ED?: No Referrals: Chrissie Dudley MD [Primary Care Provider] - 1-2 days
--- NOTE | 2024-11-25 21:58 | XR ---
EXAMINATION TYPE: XR chest 2V DATE OF EXAM: 11/25/2024 9:52 PM COMPARISON: Multiple prior chest radiograph, most recent dated 12/26/2023. CLINICAL INDICATION: Male, 39 years old with history of Chest Pain; [facility] TECHNIQUE: XR chest 2V Frontal and lateral views of the chest. FINDINGS: Lungs/Pleura: There is no evidence of pleural effusion, focal consolidation, or pneumothorax. Pulmonary vascularity: Unremarkable. Heart/mediastinum: Cardiomediastinal silhouette is unremarkable. Musculoskeletal: No acute osseous pathology. Other findings: None IMPRESSION: No acute cardiopulmonary disease/process. [facility], , 11/25/2024 9:55 PM
[2024-11-25 22:08] LABS: Basophils # (A) 0.03 10*3/uL (0.00-0.10); Basophils % (A) 0.3 %; Eosinophils % (A) 4.5 %; HCT 48.2 % (39.6-50.0); Lymphocytes # (A) 2.39 10*3/uL (0.90-5.00); Lymphocytes % (A) 26.9 %; MCH 29.9 pg (27.0-32.0); MCHC 33.2 g/dL (32.0-37.0); MCV 90.1 fL (80.0-97.0); Mean Platelet Volume 10.1 fL (9.5-12.2); Monocytes # (A) 0.56 10*3/uL (0.20-1.00); Monocytes % (A) 6.3 %; Neutrophils # (A) 5.47 10*3/uL (1.80-7.70); Neutrophils % (A) 61.8 %; Platelet Count 289 10*3/uL (140-440); RBC 5.35 10*6/uL (4.40-5.60); RDW 12.8 % (11.5-14.5); WBC 8.87 10*3/uL (4.50-10.00)
[2024-11-25 22:24] LABS: INR 0.9 (<1.2); Partial Thromboplastin Time 27.1 sec (22.0-30.0); Prothrombin Time 10.5 sec (10.0-12.5)
[2024-11-25 22:27] LABS: ALT 28 U/L (4-49); AST 25 U/L (17-59); African American GFR (CKD) >90 (>60 ml/min/1.73 sqM); Albumin 4.6 g/dL (3.5-5.0); Alkaline Phosphatase 74 U/L (38-126); Anion Gap 8 mmol/L; Blood Urea Nitrogen 19 mg/dL (9-20); Calcium 9.8 mg/dL (8.4-10.2); Carbon Dioxide 27 mmol/L (22-30); Chloride 105 mmol/L (98-107); Glucose 101 mg/dL (74-99); Magnesium 2.1 mg/dL (1.6-2.3); Non-African American GFR(CKD) >90 (>60 ml/min/1.73 sqM); Potassium 4.2 mmol/L (3.5-5.1); Sodium 140 mmol/L (137-145); Total Bilirubin 0.5 mg/dL (0.2-1.3); Total Protein 7.5 g/dL (6.3-8.2)
[2024-11-25 22:47] VITALS: BP 133/91; PULSE 75; RESP 17
== END 2024-11-25 22:52 | disposition home or self-care (01) ==
LOC: EC 21:00
DX: R00.2 Palpitations (principal)
CPT/HCPCS: 36415; 71046; 80053; 83735; 84484; 85025; 85379; 85610; 85730; 93005; 99285